=== PATIENT | female | born 1980 | race Caucasian/White ===

== ENCOUNTER 2017-09-18 14:04 | Emergency (ER) | payer OTHER ==
--- OUTSIDE RECORDS SUMMARY | 2017-09-18 14:14 | XMS REPORT ---
:1980 Author Organization [facility] Address Unavailable , Allergies, Adverse Reactions, Alerts Allergy Name Reaction Description Start Date Severity Status Provider Allergies Unknown Conditions or Problems Problem Name Problem Onset Status Entry Provider Comment Standard Annotate Code Date Date Description COUNSELING V65.45 Active Elieser Counseling on OTHER Gustavo other TRANSMITTED sexually DISEASES transmitted diseases Medication List Medication Instructions Start Stop Generic NDC Status Provider Patient Date Date Name Instruction Drug Treatment Unknown - unknown Diagnostic Results Date Name Value Unit Range Description Lab Report: RPR, Rfx Qn RPR/Confirm TP - Serology rapid plasma reagin antibody, serum Non Reactive Non Reactive Internal Other: Public Health: Community Testing - Chemistry HIV rapid test results negative Procedures Code Procedure Name Date Entry Date Standard Description [id number] Health Education/Supportive 11:43:35 CDT Counseling
[2017-09-18] MEDS ORDERED: ONDANSETRON 4 MG/2 ML VIAL ONE (14:39)
[2017-09-18] MEDS ORDERED: NA CHLORIDE 0.9% 1,000 ML ONE ×2 (14:39→15:43)
[2017-09-18 14:46] LABS: Absolute Lymphocytes (CBC) 0.6 K/uL (0.7-4.9); Absolute Monocytes 0.8 K/uL (0.1-1.3); Absolute Neutrophil 9.7 K/uL (1.8-8.0); Basophils % 0.3 % (0-1.3); Eosinophils % 0.4 % (0-4.4); Hematocrit 37.4 % (36.0-45.0); Lymphocytes % 5.4 % (15.3-44.8); MCH 31.3 pg (27.0-35.0); MCV 90.2 fL (80-100); MPV 9.3 fL (7.6-11.3); Monocytes % 7.5 % (3.3-12.3); RBC Red Blood Cell Count 4.14 M/uL (3.86-4.86)
[2017-09-18] MEDS ORDERED: KETOROLAC 30 MG/ML INJ ONE (14:56)
[2017-09-18 15:04] LABS: Albumin 3.6 g/dL (3.4-5.0); Bilirubin Total 0.5 mg/dL (0.2-1.0); Potassium 3.8 mmol/L (3.5-5.1); Protein, Total 6.6 g/dL (6.4-8.2)
--- NOTE | 2017-09-18 15:12 | ER ---
Nurse's Notes [facility] Name: Sophie Barahona Age: 36 yrs Sex: Female : 1980 Arrival Date: 09/18/2017 Time: 14:05 Bed 18 Private MD: Diagnosis: Cystitis;Type 1 diabetes mellitus;Acute tubulo-interstitial nephritis;Fever, unspecified;Bandemia Presentation: 09/18 14:05 Presenting complaint: Patient states: back pain, fever since 9-10am. I think I have ch pylo again. Transition of care: patient was not received from another setting of care. Onset of symptoms was September 18, 2017 at 09:00. Risk Assessment: Do you want to hurt yourself or someone else? Patient reports no desire to harm self or others. Initial Sepsis Screen: Does the patient meet any 2 criteria? Temp <36.0*C (96.8*F)) or > 38.3*C (100.4*F). HR > 90 bpm. Yes Does the patient have a suspected source of infection? Yes: Dysuria/Frequency/Urgency/UTI. Care prior to arrival: Medication(s) given: aleve. 14:05 Method Of Arrival: Ambulatory 14:05 Acuity: JULIAN 3 ch Triage Assessment: 14:08 General: Appears in no apparent distress. uncomfortable, Behavior is calm, cooperative, ch appropriate for age. Pain: Complains of pain in back. Historical: - Allergies: 14:08 No Known Allergies; ch - Home Meds: 14:08 humalog insulin pump, 0.8 units/ hour during day and 0.5 units/hour during night time ch [Active]; losartan 10 mg Oral 1 tab once daily [Active]; - PMHx: 14:08 Diabetes - IDDM; Hypertension; UTI; pylo; SVT; ch - PSHx: 14:08 ; Tonsillectomy; breast augmentation; ch - Immunization history:: Adult Immunizations up to date. - Social history:: Smoking status: Patient/guardian denies using tobacco. - Ebola Screening: : Patient negative for fever greater than or equal to 101.5 degrees Fahrenheit, and additional compatible Ebola Virus Disease symptoms Patient denies exposure to infectious person Patient denies travel to an Ebola-affected area in the 21 days before illness onset No symptoms or risks identified at this time. - Family history:: not pertinent. Screenin:09 Abuse screen: Denies threats or abuse. Denies injuries from another. Nutritional screening: No deficits noted. Tuberculosis screening: No symptoms or risk factors identified. Fall Risk None identified. Assessment: 14:09 General: Appears in no apparent distress. uncomfortable. 14:54 Reassessment: Patient appears in no apparent distress at this time. Patient and/or ch family updated on plan of care and expected duration. Pain level reassessed. Patient is alert, oriented x 3, equal unlabored respirations, skin warm/dry/pink. 15:47 Reassessment: awaiting second set of blood cultures prior to administration of antibiotics. awaiting antibiotics prior to discharge. 17:05 Reassessment: Patient appears in no apparent distress at this time. Patient and/or ch family updated on plan of care and expected duration. Pain level reassessed. Patient is alert, oriented x 3, equal unlabored respirations, skin warm/dry/pink. Patient states symptoms have improved. Vital Signs: 14:08 BP 157 / 78; Pulse 135; Resp 26; Pulse Ox 99% on R/A; ch 14:54 BP 130 / 79; Pulse 106; Resp 16; Temp 99.4(O); Pulse Ox 100% on R/A; Weight 78.93 kg; ch Height 5 ft. 8 in. (172.72 cm); Pain 5/10; 15:38 BP 121 / 71; Pulse 92; Resp 18; Pulse Ox 97% on R/A; mh5 17:05 BP 107 / 54; Pulse 94; Resp 15; Temp 98.6; Pulse Ox 99% on R/A; Pain 6/10; ch 14:54 Body Mass Index 26.46 (78.93 kg, 172.72 cm) ED Course: 14:05 Patient arrived in ED. 14:05 Stefani Rowley, RN is Primary Nurse. 14:06 Triage completed. 14:08 Arm band placed on left wrist. Patient placed in an exam room, on a stretcher, on pulse oximetry. 14:09 No apparent distress. Resting quietly. 14:09 Patient has correct armband on for positive identification. Placed in gown. Bed in low position. Call light in reach. Side rails up X 1. Pulse ox on. NIBP on. 14:18 Valente Tay MD is Attending Physician. aaliyah 14:45 Inserted saline lock: 20 gauge in right antecubital area, using aseptic technique. ch Blood collected. 14:45 No provider procedures requiring assistance completed. 14:50 Initial lab(s) drawn, by me, sent to lab. First set of blood cultures drawn Urine ch collected: clean catch specimen. 15:47 Warm blanket given. ch 17:05 IV discontinued, intact, bleeding controlled, No redness/swelling at site. Pressure ch dressing applied. Administered Medications: 14:40 Drug: NS 0.9% 1000 ml Route: IV; Rate: 1 bolus; Site: right antecubital; ch 16:15 Follow up: IV Status: Completed infusion; IV Intake: 1000ml 14:50 Drug: Zofran 4 mg Route: IVP; Site: right antecubital; ch 16:10 Follow up: Response: No adverse reaction ch 15:20 Drug: TORadol 30 mg Route: IVP; Site: left antecubital; ch 16:10 Follow up: Response: No adverse reaction; No change in condition 15:30 Drug: Insulin Regular Human 10 units {Co-Signature: mg2 (Kodak Casas RN).} Route: IVP; Site: right antecubital; 16:49 Follow up: Response: No adverse reaction; Blood sugar is lowered 15:50 Drug: Rocephin 2 grams Route: IV; Rate: calculated rate; Site: right antecubital; ch 16:14 Follow up: IV Status: Completed infusion ch 16:02 Drug: NS 0.9% 1000 ml Route: IV; Rate: 1 bolus; Site: right antecubital; ch 16:03 Drug: Cipro 400 mg Volume: 200 ml; Route: IVPB; Infused Over: 60 mins; Site: right ch antecubital; 16:08 Not Given (wrong order): Rocephin - (cefTRIAXone) 2 grams IVPB once over 30 mins; (mix ch in 100 mL NS) Point of Care Testing: Blood Glucose: 16:21 Blood Glucose: 183 mg/dL; mh5 Ranges: Intake: 16:15 IV: 1000ml; Total: 1000ml. ch Outcome: 15:11 Discharge ordered by . aaliyah 17:05 Discharged to home ambulatory, with family. ch 17:05 Condition: improved 17:05 Discharge instructions given to patient, family, Instructed on discharge instructions, follow up and referral plans. medication usage, Demonstrated understanding of instructions, follow-up care, medications, Prescriptions given X 4, scripts called into the [facility] in [place] by myself 17:07 Patient left the ED. Addendum: 09/21/2017 09:39 Addendum: Culture Results: Positive urine culture. No further action required. Bacteria i w sensitive to prescribed antibiotic. Signatures: Stefani Rowley, RN RN Valente Hernandez MD MD cha Williams, Irene, RN RN Sebas Hadley RN RN Yarely Mercedes [facility] Kodak Casas RN mg2
--- NOTE | 2017-09-18 15:12 | EDPHYS ---
Physician Documentation [facility] Name: Sophie Barahona Age: 36 yrs Sex: Female : 1980 Arrival Date: 09/18/2017 Time: 14:05 Bed 18 Private MD: ED Physician Vaelnte Tay HPI: 09/18 15:05 This 36 yrs old Female presents to ER via Ambulatory with complaints of Fever.aaliyah 15:05 The patient reports fever, that was measured at 102 degrees Fahrenheit. Onset: The aaliyah symptoms/episode began/occurred 2 day(s) ago. Modifying factors: there are no obvious modifying factors. Associated signs and symptoms: Pertinent positives: abdominal pain. Severity of symptoms: At their worst the symptoms were moderate in the emergency department the symptoms are unchanged. The patient has not experienced similar symptoms in the past. Historical: - Allergies: 14:08 No Known Allergies; ch - Home Meds: 14:08 humalog insulin pump, 0.8 units/ hour during day and 0.5 units/hour during night time ch [Active]; losartan 10 mg Oral 1 tab once daily [Active]; - PMHx: 14:08 Diabetes - IDDM; Hypertension; UTI; pylo; SVT; ch - PSHx: 14:08 ; Tonsillectomy; breast augmentation; ch - Immunization history:: Adult Immunizations up to date. - Social history:: Smoking status: Patient/guardian denies using tobacco. - Ebola Screening: : Patient negative for fever greater than or equal to 101.5 degrees Fahrenheit, and additional compatible Ebola Virus Disease symptoms Patient denies exposure to infectious person Patient denies travel to an Ebola-affected area in the 21 days before illness onset No symptoms or risks identified at this time. - Family history:: not pertinent. ROS: 15:05 Constitutional: Negative for fever, chills, and weight loss, Eyes: Negative for injury, aaliyah pain, redness, and discharge, ENT: Negative for injury, pain, and discharge, Neck: Negative for injury, pain, and swelling, Cardiovascular: Negative for chest pain, palpitations, and edema, Respiratory: Negative for shortness of breath, cough, wheezing, and pleuritic chest pain, : Negative for injury, bleeding, discharge, and swelling, MS/Extremity: Negative for injury and deformity, Skin: Negative for injury, rash, and discoloration, Neuro: Negative for headache, weakness, numbness, tingling, and seizure, Psych: Negative for depression, anxiety, suicide ideation, homicidal ideation, and hallucinations, Allergy/Immunology: Negative for hives, rash, and allergies, Endocrine: Negative for neck swelling, polydipsia, polyuria, polyphagia, and marked weight changes, Hematologic/Lymphatic: Negative for swollen nodes, abnormal bleeding, and unusual bruising. 15:05 Constitutional: Positive for body aches, chills, fever. 15:05 Back: Positive for decreased range of motion, pain at rest, flank pain, on the right. Exam: 15:05 Constitutional: This is a well developed, well nourished patient who is awake, alert, aaliyah and in no acute distress. Head/Face: Normocephalic, atraumatic. Eyes: Pupils equal round and reactive to light, extra-ocular motions intact. Lids and lashes normal. Conjunctiva and sclera are non-icteric and not injected. Cornea within normal limits. Periorbital areas with no swelling, redness, or edema. ENT: Nares patent. No nasal discharge, no septal abnormalities noted. Tympanic membranes are normal and external auditory canals are clear. Oropharynx with no redness, swelling, or masses, exudates, or evidence of obstruction, uvula midline. Mucous membranes moist. Neck: Trachea midline, no thyromegaly or masses palpated, and no cervical lymphadenopathy. Supple, full range of motion without nuchal rigidity, or vertebral point tenderness. No Meningismus. Chest/axilla: Normal chest wall appearance and motion. Nontender with no deformity. No lesions are appreciated. Cardiovascular: Regular rate and rhythm with a normal S1 and S2. No gallops, murmurs, or rubs. Normal PMI, no JVD. No pulse deficits. Respiratory: Lungs have equal breath sounds bilaterally, clear to auscultation and percussion. No rales, rhonchi or wheezes noted. No increased work of breathing, no retractions or nasal flaring. Abdomen/GI: Soft, non-tender, with normal bowel sounds. No distension or tympany. No guarding or rebound. No evidence of tenderness throughout. Skin: Warm, dry with normal turgor. Normal color with no rashes, no lesions, and no evidence of cellulitis. MS/ Extremity: Pulses equal, no cyanosis. Neurovascular intact. Full, normal range of motion. Neuro: Awake and alert, GCS 15, oriented to person, place, time, and situation. Cranial nerves II-XII grossly intact. Motor strength 5/5 in all extremities. Sensory grossly intact. Cerebellar exam normal. Normal gait. Psych: Awake, alert, with orientation to person, place and time. Behavior, mood, and affect are within normal limits. 15:05 Back: pain, that is mild, that is moderate, of the right mid back and right low back, ROM is painless, normal spinal alignment noted, CVA tenderness, that is mild, that is moderate, is noted on the right, muscle spasm, is not present. Vital Signs: 14:08 BP 157 / 78; Pulse 135; Resp 26; Pulse Ox 99% on R/A; ch 14:54 BP 130 / 79; Pulse 106; Resp 16; Temp 99.4(O); Pulse Ox 100% on R/A; Weight 78.93 kg; ch Height 5 ft. 8 in. (172.72 cm); Pain 5/10; 15:38 BP 121 / 71; Pulse 92; Resp 18; Pulse Ox 97% on R/A; mh5 17:05 BP 107 / 54; Pulse 94; Resp 15; Temp 98.6; Pulse Ox 99% on R/A; Pain 6/10; ch 14:54 Body Mass Index 26.46 (78.93 kg, 172.72 cm) MDM: 14:18 Patient medically screened. [facility] 15:09 Data reviewed: vital signs, nurses notes, lab test result(s). [facility] 09/18 14:20 Order name: CBC with Diff; Complete Time: 16:03 [facility] 09/18 14:20 Order name: Comprehensive Metabolic Panel; Complete Time: 15:04 [facility] 09/18 14:20 Order name: Urine Culture; Complete Time: 17:16 [facility] 09/18 14:20 Order name: Blood Culture Adult (2) [facility] 09/18 14:20 Order name: Procalcitonin; Complete Time: 16:03 [facility] 09/18 15:29 Order name: Urine Dipstick--Ancillary (enter results) 09/18 15:29 Order name: Urine --Ancillary (enter results) 09/18 15:30 Order name: Urine Dipstick-Ancillary; Complete Time: 16:03 [facility] 09/18 15:30 Order name: Urine --Ancillary; Complete Time: 16:03 [facility] 09/18 15:49 Order name: Manual Differential; Complete Time: 16:03 [facility] 09/18 14:20 Order name: Urine Dipstick-Ancillary (obtain specimen); Complete Time: 16:49 [facility] 09/18 14:20 Order name: Urine Test (obtain specimen); Complete Time: 16:49 [facility] Administered Medications: 14:40 Drug: NS 0.9% 1000 ml Route: IV; Rate: 1 bolus; Site: right antecubital; ch 16:15 Follow up: IV Status: Completed infusion; IV Intake: 1000ml 14:50 Drug: Zofran 4 mg Route: IVP; Site: right antecubital; ch 16:10 Follow up: Response: No adverse reaction ch 15:20 Drug: TORadol 30 mg Route: IVP; Site: left antecubital; ch 16:10 Follow up: Response: No adverse reaction; No change in condition 15:30 Drug: Insulin Regular Human 10 units {Co-Signature: mg2 (Kodak Casas RN).} Route: ch IVP; Site: right antecubital; 16:49 Follow up: Response: No adverse reaction; Blood sugar is lowered ch 15:50 Drug: Rocephin 2 grams Route: IV; Rate: calculated rate; Site: right antecubital; ch 16:14 Follow up: IV Status: Completed infusion 16:02 Drug: NS 0.9% 1000 ml Route: IV; Rate: 1 bolus; Site: right antecubital; 16:03 Drug: Cipro 400 mg Volume: 200 ml; Route: IVPB; Infused Over: 60 mins; Site: right ch antecubital; 16:08 Not Given (wrong order): Rocephin - (cefTRIAXone) 2 grams IVPB once over 30 mins; (mix ch in 100 mL NS) Point of Care Testing: Blood Glucose: 16:21 Blood Glucose: 183 mg/dL; mh5 Ranges: Critical Glucose Levels:Adult <50 mg/dl or >400 mg/dl <40 mg/dl or >180 mg/dl Disposition: 09/18/17 15:11 Discharged to Home. Impression: Cystitis, Type 1 diabetes mellitus, Acute tubulo-interstitial nephritis, Fever, unspecified, Bandemia. - Condition is Stable. - Discharge Instructions: Type 1 Diabetes Mellitus, Adult, Dysuria, Pyelonephritis, Adult, Pyelonephritis, Adult, [id number]. - Prescriptions for Tylenol- Codeine #3 300-30 mg Oral Tablet - take 2 tablets by ORAL route every 6 hours As needed; 26 tablet. Cipro 500 mg Oral Tablet - take 1 tablet by ORAL route every 12 hours for 7 days; 14 tablet. Bactrim DS 800- 160 mg Oral Tablet - take 1 tablet by ORAL route every 12 hours for 5 days; 10 tablet. Zofran 4 mg Oral Tablet - take 1 tablet by ORAL route every 12 hours As needed; 14 tablet. - Medication Reconciliation Form, Thank You Letter, Antibiotic Education, Prescription Opioid Use form. - Follow up: Private Physician; When: 2 - 3 days; Reason: Recheck today's complaints, Continuance of care, Re-evaluation by your physician. - Problem is new. - Symptoms have improved. Signatures: Dispatcher [employer] Stefani Malone, Valente Walden RN, ch, MD MD cha Therrien, Shelly, RN ALLERGY-C RN ALLERGY-Csnw Kodak Casas RN mg2 Corrections: (The following items were deleted from the chart) 16:05 15:11 09/18/2017 15:11 Discharged to Home. Impression: Cystitis; Type 1 diabetes aaliyah mellitus; Acute tubulo-interstitial nephritis. Condition is Stable. Forms are Medication Reconciliation Form, Thank You Letter, Antibiotic Education, Prescription Opioid Use. Follow up: Private Physician; When: 2 - 3 days; Reason: Recheck today's complaints, Continuance of care, Re-evaluation by your physician. Problem is new. Symptoms have improved. [facility] 17:07 16:05 09/18/2017 15:11 Discharged to Home. Impression: Cystitis; Type 1 diabetes ch mellitus; Acute tubulo-interstitial nephritis; Fever, unspecified; Bandemia. Condition is Stable. Discharge Instructions: Dysuria, Pyelonephritis, Adult, Pyelonephritis, Adult, [id number], Type 1 Diabetes Mellitus, Adult. Prescriptions for Tylenol-Codeine #3 300-30 mg Oral Tablet - take 2 tablets by ORAL route every 6 hours As needed; 26 tablet, Cipro 500 mg Oral Tablet - take 1 tablet by ORAL route every 12 hours for 7 days; 14 tablet, Bactrim DS 800-160 mg Oral Tablet - take 1 tablet by ORAL route every 12 hours for 5 days; 10 tablet, Zofran 4 mg Oral Tablet - take 1 tablet by ORAL route every 12 hours As needed; 14 tablet. and Forms are Medication Reconciliation Form, Thank You Letter, Antibiotic Education, Prescription Opioid Use. Follow up: Private Physician; When: 2 - 3 days; Reason: Recheck today's complaints, Continuance of care, Re-evaluation by your physician. Problem is new. Symptoms have improved. aaliyah
[2017-09-18] MEDS ORDERED: CEFTRIAXONE/SWI 1gm 2 GM/20 ML SYR ONE (15:18)
[2017-09-18] MEDS ORDERED: INSULIN -REGULAR HUMAN 50 UNIT/0.5 ML ML ONE (15:18)
[2017-09-18] MEDS ORDERED: CIPROFLOXACIN 400mg IV 400 MG/200 ML BAG IV ONE (15:19)
[2017-09-18 15:50] LABS: Blood Morphology Comment NOT SEEN (NOT SEEN); Platelet Estimate ADEQ
[2017-09-18 15:53] LABS: Urine Blood NEGATIVE (NEG); Urine Glucose 2+ (NEG); Urine Protein NEGATIVE (NEG); Urine Specific Gravity 1.015 (1.005-1.030); Urine pH 6.5 (5.0-7.0)
== END 2017-09-18 17:07 | disposition home or self-care (01) ==
LOC: ER 14:04
DX: N30.90 Cystitis, unspecified without hematuria (principal); E10.8 Type 1 diabetes mellitus with unspecified complications; N10 Acute pyelonephritis; I10 Essential (primary) hypertension; Z79.4 Long term (current) use of insulin
CPT/HCPCS: 36415; 80053; 81003; 81025; 82962; 84145; 85025; 87040; 87077; 87086; 87088; 87186; 99284; J0696; J0744; J2405; J7030

== ENCOUNTER 2018-02-15 10:10 | Day surgery (SDC) | payer OTHER ==
--- NOTE | 2018-02-14 16:35 | RAD REPORT ---
EXAM DESCRIPTION: RAD - Chest Pa And Lat (2 Views) - 02/14/2018 4:02 pm CLINICAL HISTORY: Preop, pending rotator tear repair COMPARISON: November 2016 TECHNIQUE: PA and lateral views of the chest were obtained. FINDINGS: The lungs are clear. Heart size is normal and central vasculature is within normal limit s. No pleural effusion or pneumothorax seen. No acute bony finding noted. No aortic abnormality. No significant interval change. IMPRESSION: No acute cardiopulmonary process.
[2018-02-14 16:46] LABS: Urine Appearance CLEAR; Urine Bilirubin NEGATIVE (NEG); Urine Blood NEGATIVE (NEG); Urine Color YELLOW; Urine Glucose TRACE (NEG); Urine Protein NEGATIVE (NEG); Urine Specific Gravity 1.015 (1.005-1.030); Urine Urobilinogen 0.2 mg/dL (0.2-1.0)
[2018-02-14 16:47] LABS: Absolute Lymphocytes (CBC) 3.2 K/uL (0.7-4.9); Absolute Monocytes 0.6 K/uL (0.1-1.3); Absolute Neutrophil 6.1 K/uL (1.8-8.0); Basophils % 1.1 % (0-1.3); Eosinophils % 1.7 % (0-4.4); Hematocrit 38.3 % (36.0-45.0); Lymphocytes % 31.6 % (15.3-44.8); MCH 32.6 pg (27.0-35.0); MCV 91.1 fL (80-100); MPV 9.2 fL (7.6-11.3); Monocytes % 6.2 % (3.3-12.3)
[2018-02-14 16:48] LABS: Specific Gravity 1.015 (1.005-1.030)
[2018-02-14 16:49] LABS: Urine Microscopic Reflex NO UMIC
[2018-02-14 16:56] LABS: Protime INR 1.01
[2018-02-14 17:09] LABS: Potassium 3.6 mmol/L (3.5-5.1)
--- NOTE | 2018-02-15 07:19 | EKG ---
Test Date: 2018-02-14 Test Time: 15:54:28 Claims Analyst: NADIA MEASUREMENT RESULTS: Intervals: Rate: 83 IA: 146 QRSD: 78 QT: 370 QTc: 434 [place]: P: 41 IA: 146 QRS: -2 T: 32 INTERPRETIVE STATEMENTS: Normal sinus rhythm Low voltage QRS Borderline ECG No previous ECG available for comparison Electronically Signed On 02-15-18 07:19:[address] by Kelvin Davenport
--- OUTSIDE RECORDS SUMMARY | 2018-02-15 10:13 | XMS REPORT ---
:1980 Author Organization [facility] Address Unavailable , Allergies, Adverse Reactions, Alerts [...]
[2018-02-15] MEDS ORDERED: NA CHLORIDE 0.9% 1,000 ML ONE ×2 (10:29→13:34)
[2018-02-15] MEDS ORDERED: CEFAZOLIN 1GM (PREMIX IV) 1 GM/50 ML BAG ONE (10:29)
[2018-02-15] MEDS ORDERED: MIDAZOLAM HCL 2 MG/2 ML INJ ONE ×2 (11:23→12:21)
[2018-02-15] MEDS ORDERED: ROPLVACAINE HCL 20 ML ONE (11:30)
[2018-02-15] MEDS ORDERED: DEXAMETHASONE 4 MG/ML VIAL ONE (11:30)
[2018-02-15] MEDS ORDERED: LIDOCAINE 2% MPF 5 ML VIAL ONE (12:20)
[2018-02-15] MEDS ORDERED: PROPOFOL 200 MG/20 ML VIAL IV ONE (12:20)
[2018-02-15] MEDS ORDERED: FENTANYL CITR 100 MCG/2 ML ONE ×2 (12:20→13:15)
[2018-02-15] MEDS ORDERED: ROCURONIUM 50 MG/5 ML VIAL IV ONE (12:22)
[2018-02-15] MEDS ORDERED: GLYCOPYRROLATE 0.2 MG/ML SYR ONE (12:23)
[2018-02-15] MEDS ORDERED: NEOSTIGMINE 1 MG/ML -5 ML SYRINGE ONE (12:25)
[2018-02-15] MEDS ORDERED: BUPIVACA 0.5%/EPI 0.0005%/PF 30 ML VIAL ONE (12:32)
[2018-02-15] MEDS ORDERED: Phenylephrine HCl 10 MG/ML 1 ML VIAL ONE (13:19)
[2018-02-15] MEDS ORDERED: Mastisol Adhesive Liq ONE (13:56)
[2018-02-15] MEDS ORDERED: CODEINE 30MG/APAP 300MG TAB ONE (15:39)
--- NOTE | 2018-02-16 01:35 | OP ---
Surgeon: Chaim Kam MD Preoperative Diagnosis: Left rotator cuff tear. Postoperative Diagnosis: Left rotator cuff tear. Procedure Performed: 1.Arthroscopic debridement, intra-articular shoulder . 2.Mini arthrotomy subacromial decompression with advancement and repair of rotator cuff tear. Commercial Marketing Specialist: ALAYNA Joyner. Complications: None. Disposition: Recovery room, stable. Procedure In Detail: The patient was taken to the operative suite, placed in supine position, induce d anesthesia. The shoulder was prepped and draped in usual sterile fashion. The shoulder was access ed through a posterior lateral arthroscopic portal. Found to have a labral tear and an bicipital anc hor tear that was described on the MRI scan through an anterior portal, this was debrided with the fi rm bicipital anchor achieved to the completion of the procedure. The patient tolerated the procedure well through up to this point. The rotator cuff tear was identified. A focal area has similar liudmila on described by the MRI scan in anterior and lateral approach to the shoulder. A mini arthrotomy sub acromial decompression was performed. Minimal deltoid detachment of the rotator cuff tear was identi fied and advanced easily to its anatomic attachment where . A suture anchor was utilized t o tie it down to its anatomic attachment. Drill holes were placed in the acromion and the patient russo d of the deltoid through drill holes subcuticular stitch was placed, followed by Steri-Strips, followed by a sterile dressing. The patient is being reversed from anesthesia and should be in the recovery room shortly. CHRIS/ROBB Voice ID: [id number] Report ID: [id number]
== END 2018-02-15 16:03 | disposition home or self-care (01) ==
LOC: OR 10:10
PROVIDERS: ATTEND Orthopaedic Surgery
PROC: 0RNK0ZZ Release Left Shoulder Joint, Open Approach (ICD-10-PCS; 2018-02-15)
PROC: 0RBK4ZZ Excision of Left Shoulder Joint, Percutaneous Endoscopic Approach (ICD-10-PCS; 2018-02-15)
PROC: 0LM20ZZ Reattachment of Left Shoulder Tendon, Open Approach (ICD-10-PCS; principal; 2018-02-15 12:00)
DX: M75.122 Complete rotator cuff tear or rupture of left shoulder, not specified as traumatic (principal); E11.9 Type 2 diabetes mellitus without complications; I10 Essential (primary) hypertension; Z79.4 Long term (current) use of insulin; Z82.49 Family history of ischemic heart disease and other diseases of the circulatory system; Z80.3 Family history of malignant neoplasm of breast
CPT/HCPCS: 36415; 71046; 80048; 81003; 81025; 82962; 85025; 85610; 85730; 86850; 86900; 86901; 93005; J0690; J2250; J2370; J2704; J2710; J2795; J3010; J7030

== ENCOUNTER 2018-03-04 11:59 | Emergency (ER) | payer OTHER ==
--- OUTSIDE RECORDS SUMMARY | 2018-03-04 12:01 | XMS REPORT ---
:1980 Author Organization [facility] Address Unavailable , Allergies, Adverse Reactions, [...]
--- OUTSIDE RECORDS SUMMARY | 2018-03-04 12:01 | XMS REPORT ---
:1980 Author Organization [facility] Address [address] [place] [address] Dr. Nael [address] [place] [id number] Care Team Providers Name Role Phone Unavailable Unavailable Unavailable Problems This patient has no known problems. Allergies, Adverse Reactions, Alerts This patient has no known allergies or adverse reactions. Medications This patient has no known medications.
[2018-03-04] MEDS ORDERED: NA CHLORIDE 0.9% 1,000 ML ONE (12:50)
--- NOTE | 2018-03-04 13:03 | RAD REPORT ---
EXAM DESCRIPTION: [place] Single View03/04/2018 12:56 pm CLINICAL HISTORY: Chest pain COMPARISON: January 2018 FINDINGS: The lungs appear clear of acute infiltrate. The heart is normal size IMPRESSION: No acute abnormalities displayed
[2018-03-04 13:18] LABS: Absolute Monocytes 0.6 K/uL (0.1-1.3); Hematocrit 38.2 % (36.0-45.0); Lymphocytes % 20.5 % (15.3-44.8); MCV 90.9 fL (80-100); MPV 8.7 fL (7.6-11.3); Monocytes % 6.1 % (3.3-12.3); RBC Red Blood Cell Count 4.21 M/uL (3.86-4.86)
[2018-03-04 13:34] LABS: ALT/SGPT 27 U/L (12-78); AST/SGOT 8 U/L (15-37); Albumin 3.8 g/dL (3.4-5.0); Alkaline Phosphatase 78 U/L (45-117); BUN Blood Urea Nitrogen 16 mg/dL (7-18); Bicarbonate 25 mmol/L (21-32); Bilirubin Direct 0.1 mg/dL (0-0.2); Bilirubin Total 0.5 mg/dL (0.2-1.0); Glucose Level 262 mg/dL (74-106); Magnesium 1.7 mg/dL (1.8-2.4); NT PRO-BNP 17 pg/mL (<125); Potassium 4.4 mmol/L (3.5-5.1); Protein, Total 7.6 g/dL (6.4-8.2); Sodium Level 133 mmol/L (136-145); Troponin (Emerg Dept Use Only) < 0.02 ng/mL (0.0-0.045)
[2018-03-04 15:08] LABS: T4,Total 7.6 ug/dL (4.8-13.9); Thyroid Stimulating Hormone 1.24 uIU/mL (0.360-3.740)
--- NOTE | 2018-03-04 15:26 | RAD REPORT ---
EXAM DESCRIPTION: CT - Chest For Pe Angio - 03/04/2018 3:08 pm CLINICAL HISTORY: Chest pain, shortness of breath, history of recent left rotator cuff repair surgery COMPARISON: Chest films same date TECHNIQUE: Dynamically enhanced 3 mm thick images of the chest were obtained during administration o f approximately 150mL Isovue 370 IV contrast. Coronal and oblique MIP reconstruction images were gene rated and reviewed. Exam utilizes a protocol to evaluate the pulmonary arterial tree. All CT scans are performed using dose optimization technique as appropriate and may include automated exposure control or mA/KV adjustment according to patient size. FINDINGS: No pulmonary emboli are identified. The aorta as imaged shows no acute or suspicious finding. No pericardial thickening or effusion. No infiltrate or mass in the lung parenchyma. No pleural effusion or pleural thickening. No mediastinal or hilar suspicious masses. No chest wall masses or abnormal axillary lymphadenopathy. Bilateral breast implants in place. No abnormal soft tissue finding. Shoulder joint assessment is li mited. IMPRESSION: No pulmonary emboli identified. No other significant or suspicious findings.
--- NOTE | 2018-03-04 15:31 | EKG ---
Test Date: 2018-03-04 Test Time: 12:02:50 Dietetic Aide: RIDGE MEASUREMENT RESULTS: Intervals: Rate: 104 WV: 132 QRSD: 68 QT: 320 QTc: 420 [place]: P: 57 WV: 132 QRS: -3 T: 56 INTERPRETIVE STATEMENTS: Sinus tachycardia Abnormal ECG Compared to ECG 02/14/2018 15:54:28 Sinus rhythm no longer present Electronically Signed On 03-04-18 15:30:53 BLUE LEATHER SORTER by Kelvin Davenport
--- NOTE | 2018-03-04 15:36 | ER ---
Nurse's Notes [facility] Name: Sophie Barahona Age: 37 yrs Sex: Female : 1980 Arrival Date: 03/04/2018 Time: 12:01 Bed 26 Private MD: Diagnosis: Chest pain, unspecified;Shortness of breath Presentation: 03/04 12:10 Presenting complaint: Patient states: left rotator cuff surgery X 2 weeks , has been iw felling slightly winded and feeling some discomfort in her chest, was worse this morning at 0600, home pulse ox was reading 88%, pt states she used her Incentive Spirometer and was up to 97%, also has been running low grade temp. 12:22 Transition of care: patient was not received from another setting of care. Onset of iw symptoms was March 04, 2018. Risk Assessment: Do you want to hurt yourself or someone else? Patient reports no desire to harm self or others. Initial Sepsis Screen: Does the patient meet any 2 criteria? No. Patient's initial sepsis screen is negative. Does the patient have a suspected source of infection? No. Patient's initial sepsis screen is negative. Care prior to arrival: None. 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 - Ebola Screening: : Patient negative for fever greater than or equal to 101.5 degrees Fahrenheit, and additional compatible Ebola Virus Disease symptoms Patient denies exposure to infectious person Patient denies travel to an Ebola-affected area in the 21 days before illness onset No symptoms or risks identified at this time. - Social history:: Smoking status: Patient/guardian denies using tobacco. Screenin:23 Abuse screen: Denies threats or abuse. Denies injuries from another. Nutritional iw screening: No deficits noted. Tuberculosis screening: No symptoms or risk factors identified. Fall Risk IV access (20 points). Assessment: 12:30 General: Appears in no apparent distress. uncomfortable, Behavior is calm, cooperative. iw Pain: Complains of pain in mid-sternal area. Neuro: Level of Consciousness is awake, alert, obeys commands, Oriented to person, place, time, situation, Appropriate for age Moves all extremities. Full function. Cardiovascular: Reports chest pain, shortness of breath, Capillary refill < 3 seconds in bilateral fingers Patient's skin is warm and dry. Rhythm is sinus tachycardia. Respiratory: Reports shortness of breath cough that is Respiratory effort is even, unlabored, Respiratory pattern is regular, symmetrical. GI: No signs and/or symptoms were reported involving the gastrointestinal system. Derm: Skin is intact, is healthy with good turgor. Musculoskeletal: Range of motion: intact in all extremities. 13:09 Reassessment: Patient appears in no apparent distress at this time. Patient and/or iw family updated on plan of care and expected duration. Pain level reassessed. Patient is alert, oriented x 3, equal unlabored respirations, skin warm/dry/pink. 15:02 Reassessment: Patient appears in no apparent distress at this time. Patient and/or ls4 family updated on plan of care and expected duration. Pain level reassessed. Patient is alert, oriented x 3, equal unlabored respirations, skin warm/dry/pink. 15:57 Reassessment: Patient appears in no apparent distress at this time. Patient and/or ls4 family updated on plan of care and expected duration. Pain level reassessed. Patient is alert, oriented x 3, equal unlabored respirations, skin warm/dry/pink. Vital Signs: 12:14 BP 120 / 76; Pulse 104; Resp 18 S; Temp 98.2(O); Pulse Ox 100% on R/A; Weight 68.04 kg; iw Height 5 ft. 5 in. (165.10 cm); Pain 2/10; 13:09 BP 106 / 80; Pulse 100; Resp 16 S; Pulse Ox 100% ; iw 12:14 Body Mass Index 24.96 (68.04 kg, 165.10 cm) iw ED Course: 12:01 Patient arrived in ED. ss 12:03 Neeraj Remy NP is PHCP. pm1 12:03 Warm blanket given. ekg monitor on. Pulse ox on. NIBP on. mh5 12:04 Bashir Pastrana MD is Attending Physician. pm1 12:09 EKG done, by orthodontic laboratory technician. reviewed by Valente Tay MD. at1 12:10 Donna Harris, RN is Primary Nurse. iw 12:15 Arm band placed on. iw 12:15 Initial lab(s) drawn, by me, sent to lab. Inserted saline lock: 20 gauge in right iw antecubital area, using aseptic technique. 12:23 Triage completed. iw 12:30 Patient has correct armband on for positive identification. Placed in gown. Bed in low iw position. Call light in reach. Side rails up X2. Adult w/ patient. 12:55 X-ray completed. Portable x-ray completed in exam room. Patient tolerated procedure jb2 well. 12:57 XRAY Chest (1 view) In Process Unspecified. EDMS 13:10 Lab(s) recollected, by me, sent to lab. iw 14:[address] vm2 15:09 CT Chest For PE Angio In Process Unspecified. EDMS 15:59 No provider procedures requiring assistance completed. IV discontinued, intact, ls4 bleeding controlled, No redness/swelling at site. Pressure dressing applied. Administered Medications: 12:50 Drug: NS 0.9% 1000 ml Route: IV; Rate: 1000 ml; Site: right antecubital; iw 15:20 Follow up: IV Status: Completed infusion; IV Intake: 1000ml ls4 Intake: 15:20 IV: 1000ml; Total: 1000ml. ls4 Outcome: 15:36 Discharge ordered by . pm1 16:00 Condition: stable ls4 16:01 Discharged to home ambulatory, with family. ls4 16:01 Discharge instructions given to patient, family, Instructed on discharge instructions, follow up and referral plans. medication usage, safety practices, Demonstrated understanding of instructions, follow-up care, medications. 16:01 Patient left the ED. ls4 Signatures: Dispatcher [employer] EDMS David Caballero jb2 Donna Harris RN RN Elzbieta Ponce RN RN ss Mary Grewal, cytogenetics laboratory manager EKG Tat1 Neeraj Remy NP ROTARY PLANER SET UP OPERATOR pm1 Yarely Mercedes mh5 Annalisa, Kianna vm2 Chantell Larry, RN RN ls4
--- NOTE | 2018-03-04 15:36 | EDPHYS ---
Physician Documentation [facility] Name: Sophie Barahona Age: 37 yrs Sex: Female : 1980 Arrival Date: 03/04/2018 Time: 12:01 Bed 26 Private MD: ED Physician Bashir Pastrana HPI: 03/04 14:00 This 37 yrs old Female presents to ER via Ambulatory with complaints of pm1 Shortness Of Breath, Chest Pain. 14:00 The patient has shortness of breath at rest. Onset: The symptoms/episode began/occurred pm1 today. The patient's shortness of breath is alleviated by Shortness of breath improved with deep breathing. Associated signs and symptoms: Pertinent negatives: non-productive cough, productive cough, dizziness, fever, nausea, vomiting. Patient woke up today with a low O2 saturation that improved with deep breathing. She is also complaining of shortness of breath and chest pain located below her breasts. Patient with recent rotator cuff repair to left shoulder. No fever or cough. 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 - Ebola Screening: : Patient negative for fever greater than or equal to 101.5 degrees Fahrenheit, and additional compatible Ebola Virus Disease symptoms Patient denies exposure to infectious person Patient denies travel to an Ebola-affected area in the 21 days before illness onset No symptoms or risks identified at this time. - Social history:: Smoking status: Patient/guardian denies using tobacco. ROS: 15:00 Constitutional: Negative for fever, chills, and weight loss, Eyes: Negative for injury, pm1 pain, redness, and discharge, ENT: Negative for injury, pain, and discharge, Neck: Negative for injury, pain, and swelling. 15:00 Abdomen/GI: Negative for abdominal pain, nausea, vomiting, diarrhea, and constipation, Back: Negative for injury and pain, : Negative for injury, bleeding, discharge, and swelling, MS/Extremity: Negative for injury and deformity, Skin: Negative for injury, rash, and discoloration, Neuro: Negative for headache, weakness, numbness, tingling, and seizure. 15:00 Cardiovascular: Positive for chest pain, palpitations, Negative for edema, orthopnea. 15:00 Respiratory: Positive for shortness of breath, Negative for cough, sputum production, wheezing. Exam: 15:00 Constitutional: This is a well developed, well nourished patient who is awake, alert, pm1 and in no acute distress. Head/Face: Normocephalic, atraumatic. Eyes: Pupils equal round and reactive to light, extra-ocular motions intact. Lids and lashes normal. Conjunctiva and sclera are non-icteric and not injected. Cornea within normal limits. Periorbital areas with no swelling, redness, or edema. ENT: Nares patent. No nasal discharge, no septal abnormalities noted. Tympanic membranes are normal and external auditory canals are clear. Oropharynx with no redness, swelling, or masses, exudates, or evidence of obstruction, uvula midline. Mucous membranes moist. Neck: Trachea midline, no thyromegaly or masses palpated, and no cervical lymphadenopathy. Supple, full range of motion without nuchal rigidity, or vertebral point tenderness. No Meningismus. Chest/axilla: Normal chest wall appearance and motion. Nontender with no deformity. No lesions are appreciated. Cardiovascular: Regular rate and rhythm with a normal S1 and S2. No gallops, murmurs, or rubs. Normal PMI, no JVD. No pulse deficits. Respiratory: Lungs have equal breath sounds bilaterally, clear to auscultation and percussion. No rales, rhonchi or wheezes noted. No increased work of breathing, no retractions or nasal flaring. Abdomen/GI: Soft, non-tender, with normal bowel sounds. No distension or tympany. No guarding or rebound. No evidence of tenderness throughout. Back: No spinal tenderness. No costovertebral tenderness. Full range of motion. Skin: Warm, dry with normal turgor. Normal color with no rashes, no lesions, and no evidence of cellulitis. Left shoulder surgical scars without any signs of discharge, erythema, dihisence, or cellulitis MS/ Extremity: Pulses equal, no cyanosis. Neurovascular intact. Full, normal range of motion. 15:00 Neuro: Orientation: is normal, Motor: is normal. Vital Signs: 12:14 BP 120 / 76; Pulse 104; Resp 18 S; Temp 98.2(O); Pulse Ox 100% on R/A; Weight 68.04 kg; iw Height 5 ft. 5 in. (165.10 cm); Pain 2/10; 13:09 BP 106 / 80; Pulse 100; Resp 16 S; Pulse Ox 100% ; iw 12:14 Body Mass Index 24.96 (68.04 kg, 165.10 cm) iw MDM: 12:05 Patient medically screened. pm1 15:35 Data reviewed: vital signs. Data interpreted: Pulse oximetry: on room air is 100 %. pm1 Interpretation: normal. Counseling: I had a detailed discussion with the patient and/or guardian regarding: the historical points, exam findings, and any diagnostic results supporting the discharge/admit diagnosis, lab results, radiology results, the need for outpatient follow up, to return to the emergency department if symptoms worsen or persist or if there are any questions or concerns that arise at home. 03/04 12:24 Order name: Basic Metabolic Panel; Complete Time: 13:52 pm1 03/04 12:24 Order name: CBC with Diff; Complete Time: 13:27 pm1 03/04 12:24 Order name: LFT's; Complete Time: 13:52 pm1 03/04 12:24 Order name: Magnesium; Complete Time: 13:52 pm1 03/04 12:24 Order name: NT PRO-BNP; Complete Time: 13:52 pm1 03/04 12:24 Order name: Troponin (emerg Dept Use Only); Complete Time: 13:52 pm1 03/04 12:24 Order name: XRAY Chest (1 view); Complete Time: 13:07 pm1 03/04 12:25 Order name: Creatinine for Radiology; Complete Time: 13:52 pm1 03/04 14:26 Order name: TSH; Complete Time: 15:16 pm1 03/04 14:26 Order name: T4 Free; Complete Time: 15:16 pm1 03/04 14:26 Order name: T4,Total; Complete Time: 15:16 pm1 03/04 15:54 Order name: Urine Dipstick--Ancillary (enter results) 03/04 15:54 Order name: Urine --Ancillary (enter results) 03/04 12:24 Order name: EKG; Complete Time: 12:25 pm1 03/04 12:24 Order name: Cardiac monitoring; Complete Time: 12:25 pm1 03/04 12:24 Order name: EKG - Nurse/Tech; Complete Time: 12:25 pm1 03/04 12:24 Order name: IV Saline Lock; Complete Time: 12:41 pm1 03/04 12:24 Order name: Labs collected and sent; Complete Time: 12:41 pm1 03/04 12:24 Order name: O2 Per Protocol; Complete Time: 12:25 pm1 03/04 12:24 Order name: O2 Sat Monitoring; Complete Time: 12:25 pm1 03/04 12:54 Order name: Labs - recollect needed; Complete Time: 13:10 03/04 13:53 Order name: CT Chest For PE Angio; Complete Time: 15:29 pm1 Administered Medications: 12:50 Drug: NS 0.9% 1000 ml Route: IV; Rate: 1000 ml; Site: right antecubital; iw 15:20 Follow up: IV Status: Completed infusion; IV Intake: 1000ml ls4 Disposition: 16:29 Co-signature as Attending Physician, Bashir Pastrana MD. Disposition: 03/04/18 15:36 Discharged to Home. Impression: Chest pain, unspecified, Shortness of breath. - Condition is Stable. - Discharge Instructions: Nonspecific Chest Pain, Shortness of Breath. - Medication Reconciliation Form, Thank You Letter, Antibiotic Education, Prescription Opioid Use form. - Follow up: Emergency Department; When: As needed; Reason: Worsening of condition. Follow up: Private Physician; When: 2 - 3 days; Reason: Recheck today's complaints, Continuance of care, Re-evaluation by your physician. - Problem is new. - Symptoms have improved. Signatures: Dispatcher [employer] EDMS Leeanne Harvey Irene, RN RN Neeraj Remy, CONFIGURATION DEVELOPER CONFIGURATION DEVELOPER pm1 Bashir Pastrana MD MD Chantell Larry RN RN ls4 Corrections: (The following items were deleted from the chart) 16:01 15:36 03/04/2018 15:36 Discharged to Home. Impression: Chest pain, unspecified; ls4 Shortness of breath. Condition is Stable. Forms are Medication Reconciliation Form, Thank You Letter, Antibiotic Education, Prescription Opioid Use. Follow up: Emergency Department; When: As needed; Reason: Worsening of condition. Follow up: Private Physician; When: 2 - 3 days; Reason: Recheck today's complaints, Continuance of care, Re-evaluation by your physician. Problem is new. Symptoms have improved. pm1
[2018-03-04 16:16] LABS: Urine Blood NEGATIVE (NEG); Urine Glucose 1+ (NEG); Urine Protein 2+ (NEG); Urine pH 7.5 (5.0-7.0)
== END 2018-03-04 16:01 | disposition home or self-care (01) ==
LOC: ER 11:59
DX: R07.9 Chest pain, unspecified (principal); I10 Essential (primary) hypertension; E11.9 Type 2 diabetes mellitus without complications; Z79.4 Long term (current) use of insulin; Z96.41 Presence of insulin pump (external) (internal); Z98.82 Breast implant status
CPT/HCPCS: 36415; 71045; 71275; 80048; 80076; 81003; 81025; 83735; 83880; 84436; 84439; 84443; 84484; 85025; 93005; 96360; 96361; 99285; J7030; Q9967

== ENCOUNTER 2018-06-07 10:52 | Day surgery (SDC) | payer OTHER ==
[2018-06-05 17:23] LABS: Absolute Lymphocytes (CBC) 1.9 K/uL (0.7-4.9); Absolute Monocytes 0.7 K/uL (0.1-1.3); Absolute Neutrophil 8.1 K/uL (1.8-8.0); Eosinophils % 2.4 % (0-4.4); Hematocrit 40.2 % (36.0-45.0); Lymphocytes % 17.4 % (15.3-44.8); Monocytes % 6.2 % (3.3-12.3); RBC Red Blood Cell Count 4.37 M/uL (3.86-4.86)
[2018-06-05 17:32] LABS: Urine Appearance CLEAR; Urine Bilirubin NEGATIVE (NEG); Urine Blood NEGATIVE (NEG); Urine Color YELLOW; Urine Glucose 3+ (NEG); Urine Protein NEGATIVE (NEG); Urine Specific Gravity >=1.030 (1.005-1.030); Urine Urobilinogen 0.2 mg/dL (0.2-1.0)
[2018-06-05 17:33] LABS: Urine Microscopic Reflex NO UMIC
[2018-06-05 17:41] LABS: Potassium 4.5 mmol/L (3.5-5.1)
--- OUTSIDE RECORDS SUMMARY | 2018-06-07 10:54 | XMS REPORT ---
:1980 [facility] Address [address] [place] [address] Dr. Neal [address] [place] [id number] Care Team Providers Name Role Phone Unavailable Unavailable Unavailable Problems This patient has no known problems. Allergies, Adverse Reactions, Alerts This patient has no known allergies or adverse reactions. Medications This patient has no known medications.
--- OUTSIDE RECORDS SUMMARY | 2018-06-07 10:54 | XMS REPORT ---
:1980 Author Organization [facility] Address Unavailable , Allergies, Adverse Reactions, [...]
[2018-06-07] MEDS ORDERED: NA CHLORIDE 0.9% 1,000 ML ONE (11:09)
[2018-06-07] MEDS ORDERED: FENTANYL CITR 100 MCG/2 ML ONE ×2 (12:18→13:28)
[2018-06-07] MEDS ORDERED: LIDOCAINE 1% MPF 5 ML VIAL ONE (12:18)
[2018-06-07] MEDS ORDERED: PROPOFOL 200 MG/20 ML VIAL IV ONE (12:18)
[2018-06-07] MEDS ORDERED: MIDAZOLAM HCL 2 MG/2 ML INJ ONE (12:18)
[2018-06-07] MEDS ORDERED: TRIAMCINOLONE ACETON 40 MG/ML VIAL ONE (12:24)
[2018-06-07] MEDS ORDERED: LIDOCAINE 1% MPF 30 ML VIAL ONE (12:24)
[2018-06-07] MEDS ORDERED: KETOROLAC 30 MG/ML INJ ONE ×2 (12:40→13:27)
[2018-06-07] MEDS ORDERED: NS 0.9% VIAL 10 ML ONE (12:44)
[2018-06-07] MEDS ORDERED: ONDANSETRON 4 MG/2 ML VIAL ONE (12:44)
[2018-06-07] MEDS: HYDROMORPHONE HCL 2 MG/ML inj ONE ×4 (12:55→13:10)
[2018-06-07] MEDS: FENTANYL CITR 100 MCG/2 ML ONE ×2 (13:05→13:13)
[2018-06-07] MEDS ORDERED: PROMETHAZINE 25 MG/ML VIAL ONE (13:18)
[2018-06-07] MEDS ORDERED: DIPHENHYDRAMINE 50 MG/ML VIAL ONE (14:01)
--- NOTE | 2018-06-07 19:43 | OP ---
Surgeon: Chaim Kam MD Preoperative Diagnosis: Left shoulder ankylosis, status post left rotator cuff repair. Postoperative Diagnosis: Left shoulder ankylosis, status post left rotator cuff repair. Procedure Performed: 1.Manipulation of left shoulder under anesthesia. 2.Injection of left shoulder. Sound Truck Operator: None. Anesthesia: General. Procedure In Detail: The patient was taken to the operative suite, placed in supine position, induce d anesthesia. Left shoulder prepped and draped in usual sterile fashion. through the ran ge of motion with palpable lysis of adhesions and was injected with 1 cc Kenalog, 3 cc of lidocaine. The patient was reversed from anesthesia and should be in the recovery room shortly. PEREZ Voice ID: [id number] Report ID: [id number]
== END 2018-06-07 14:27 | disposition home or self-care (01) ==
LOC: OR 10:52
PROVIDERS: ATTEND Orthopaedic Surgery
PROC: 3E0U33Z Introduction of Anti-inflammatory into Joints, Percutaneous Approach (ICD-10-PCS; 2018-06-07)
PROC: 0RNKXZZ Release Left Shoulder Joint, External Approach (ICD-10-PCS; principal; 2018-06-07 12:00)
DX: M24.612 Ankylosis, left shoulder (principal); E10.9 Type 1 diabetes mellitus without complications; Z79.4 Long term (current) use of insulin
CPT/HCPCS: 36415; 80048; 81003; 81025; 82962; 85025; J1170; J2250; J2405; J2550; J2704; J3010; J3301; J7030

== ENCOUNTER 2019-04-21 14:21 | Inpatient (IN) | payer OTHER ==
--- OUTSIDE RECORDS SUMMARY | 2019-04-21 16:41 | XMS REPORT ---
:1980 [facility] Address [address] [place] [address] Dr. Neal [address] [place] [id number] Care Team Providers Name Role Phone Unavailable Unavailable Unavailable Problems This patient has no known problems. Allergies, Adverse Reactions, Alerts This patient has no known allergies or adverse reactions. Medications This patient has no known medications.
--- OUTSIDE RECORDS SUMMARY | 2019-04-21 16:41 | XMS REPORT ---
:1980 Author Organization [facility] Address Unavailable , Allergies, Adverse [...]
[2019-04-21] MEDS ORDERED: MORPHINE 2 MG/ML SYR IV PRN (17:05)
[2019-04-21] MEDS ORDERED: HYDROCODONE/APAP 5/325 MG TAB PO PRN (17:05)
[2019-04-21 17:38] LABS: Absolute Lymphocytes (CBC) 2.7 K/uL (0.7-4.9); Basophils % 0.9 % (0-1.3); Hematocrit 33.8 % (36.0-45.0); Lymphocytes % 21.4 % (15.3-44.8); MPV 9.3 fL (7.6-11.3); RBC Red Blood Cell Count 3.68 M/uL (3.86-4.86)
[2019-04-21] MEDS: Ringers Lactate 1,000 ML IV SCH (17:56)
[2019-04-21 17:57] LABS: Potassium 3.9 mmol/L (3.5-5.1)
[2019-04-21 18:22] VITALS: BMI 26.6
[2019-04-21] MEDS: PIPER/TAZO/NS 3.375gm 3.375 GM/100 ML BAG IVPB SCH (19:20)
[2019-04-21] MEDS ORDERED: PNEUMOCOCCAL VACCINE 0.5 ML IMVAC ONE (21:00)
[2019-04-22] MEDS: PIPER/TAZO/NS 3.375gm 3.375 GM/100 ML BAG IVPB SCH ×3 (00:40→16:45)
[2019-04-22] MEDS: Ringers Lactate 1,000 ML IV SCH ×5 (02:00→18:00)
[2019-04-22] MEDS ORDERED: NA CHLORIDE 0.9% 1,000 ML ONE ×2 (07:21→09:24)
[2019-04-22] MEDS: LIDOCAINE 1% W/EPI 1:100,000 MDV 20 ML VIAL ONE ×2 (07:36→08:40)
[2019-04-22] MEDS ORDERED: propofoL 200 MG/20 ML VIAL IV ONE (07:40)
[2019-04-22] MEDS ORDERED: FENTANYL CITR 100 MCG/2 ML ONE (07:41)
[2019-04-22] MEDS ORDERED: LIDOCAINE 2% MPF 5 ML VIAL ONE (07:41)
[2019-04-22] MEDS ORDERED: MIDAZOLAM HCL 2 MG/2 ML INJ ONE (07:41)
[2019-04-22] MEDS ORDERED: dexAMETHasone 10 MG/ML VIAL ONE (08:38)
[2019-04-22] MEDS ORDERED: ONDANSETRON 4 MG/2 ML VIAL ONE ×2 (08:38→09:09)
[2019-04-22] MEDS ORDERED: KETOROLAC 30 MG/ML INJ ONE (08:43)
[2019-04-22] MEDS ORDERED: INSULIN LISPRO SQ SCH (09:15)
[2019-04-22] MEDS: HYDROMORPHONE HCL 1 MG/ML INJ ONE ×2 (09:17→09:23)
[2019-04-22 10:13] LABS: Absolute Lymphocytes (CBC) 2.3 K/uL (0.7-4.9); Basophils % 0.8 % (0-1.3); Hematocrit 30.9 % (36.0-45.0); Lymphocytes % 23.6 % (15.3-44.8); MPV 9.3 fL (7.6-11.3); RBC Red Blood Cell Count 3.32 M/uL (3.86-4.86)
[2019-04-22] MEDS ORDERED: IBUPROFEN 600 MG TAB PO PRN (13:35)
[2019-04-22] MEDS: ONDANSETRON 4 MG/2 ML VIAL IV PRN (14:50)
[2019-04-22] MEDS ORDERED: IBUPROFEN 200 MG TAB PO PRN (14:56)
[2019-04-22] MEDS: IBUPROFEN 200 MG TAB PO PRN ×2 (15:55→21:35)
--- NOTE | 2019-04-22 19:34 | OP ---
Date of Procedure: 04/22/2019 Surgeon: Jody Woods MD Car Shifter: Wen Elizalde. Preoperative Diagnosis: Right mons and labial abscess. Postoperative Diagnosis: Right mons and labial abscess. Procedure Performed: Exam under anesthesia, incision and drainage, followed by debridement of the ab scess and infected tissue. Anesthesia: General with LMA. Specimens: Debrided tissue and aerobic and anaerobic cultures. Estimated Blood Loss: Minimal. Complications: No complications. Drains: Packing in the wound with 2 x 2 roll, wet-to-dry dressings done. Description Of Procedure: The patient is a 38-year-old type 1 diabetic, presented with tenderness an d increasing lump on the right mons last week, placed on Bactrim for possible cellulitis. There was nothing to drain at the time. No abscess noted. Back on Sunday, which was yesterday in the office w ith a larger mass very painful, on ambulation or doing anything even sitting down. On examination, i t was a clear abscess, but very deep-seated with a lot of cellulitis on the top extending and deviati ng the labia on the right over to the left shifting it due to the size of the mass and the inflammati on, so she was deemed appropriate to be admitted to the hospital for IV antibiotics and then drain it . Today, she was brought in for an incision, drainage, and debridement. After being consented, she was taken back to the OR. She had received Zosyn 2 doses already since admission and she was taken t o the OR, placed in supine fashion on the operating table. General anesthesia was given. She was pl aced in a dorsal lithotomy position and prep was done on the lower abdomen, vulva, vagina, and perine um. She was draped appropriately. SCDs were started. Time-out was done and an elliptical incision was made with a 15-blade after injecting with local, then went ahead and cultured as the pus started to come out. The abscess cavity was much more superior and lateral on the mons and so, the incision was extended laterally and superiorly. Then, there was tissue on the top that had to be debride d and once this was done, the abscess cavity was very well formed and was all removed excepting for t he superior most lateral aspect, which was difficult to hold and removed, but this was curetted with the help of the tissue curette. After all the tissues were properly curetted, there was good bleedin g tissue underlying. Then, irrigation was done to clean out the tissue. No other extension of the c avity was noted. Probing was done with the help of hemostat. Then after irrigation again thoroughly , this was packed with 2 x 2 roll and then dry Kerlix, sponge dressing was placed on the top and tape was placed. Instrument, needle, and sponge counts were correct. EBL minimal. Patient was recovere d from anesthesia in the OR and taken to PACU in stable condition. Discharge plan will be to keep her on the floor for 24 hours, remove her dressing, repeat her dressin g change tonight and then again tomorrow morning. Then, we will teach the patient's family member bailee perez to do her dressings. Then, leave her on the Zosyn for 48 hours and then put her on oral Augmentin and discharge her home with 12 days of antibiotics with that. Her sugars are very well controlled at this point. So, we will continue the same management and restart on her home medications. She will follow up with me in my office in 1 week. SUSAN/ROBB Voice ID: [id number] Report ID: [id number]
[2019-04-23] MEDS: PIPER/TAZO/NS 3.375gm 3.375 GM/100 ML BAG IVPB SCH ×3 (00:10→16:25)
[2019-04-23] MEDS: Ringers Lactate 1,000 ML IV SCH ×2 (02:00→10:00)
[2019-04-23 05:51] LABS: Absolute Lymphocytes (CBC) 2.9 K/uL (0.7-4.9); Basophils % 1.3 % (0-1.3); Hematocrit 29.6 % (36.0-45.0); Lymphocytes % 26.3 % (15.3-44.8); MPV 9.3 fL (7.6-11.3); RBC Red Blood Cell Count 3.19 M/uL (3.86-4.86)
[2019-04-23] MEDS ORDERED: PANTOPRAZOLE 40MG TABLET PO SCH (06:00)
[2019-04-23] MEDS ORDERED: HYDROCODONE/APAP 5/325 MG TAB PO ONE (07:59)
[2019-04-23] MEDS: IBUPROFEN 200 MG TAB PO PRN ×2 (08:22→13:48)
[2019-04-23] MEDS ORDERED: LOSARTAN POTASSIUM 50 MG TABLET PO SCH (09:00)
[2019-04-23] MEDS ORDERED: SPIRONOLACTONE 25 MG TABLET PO SCH (09:00)
[2019-04-23] MEDS ORDERED: METOPROLOL XL 50 MG TAB PO SCH (09:00)
[2019-04-23 09:36] VITALS: O2SAT 98
[2019-04-23 10:22] LABS: Blood Morphology Comment NOT SEEN (NOT SEEN); Platelet Estimate ADEQ
[2019-04-23] MEDS: ONDANSETRON 4 MG/2 ML VIAL IV PRN (10:41)
[2019-04-23] MEDS ORDERED: LIDOCAINE VISCOUS 2% SOLN 15 ML UDC ONE (12:05)
[2019-04-23 16:03] VITALS: BP 122/69; TEMP 97
== END 2019-04-23 18:29 | disposition home or self-care (01) | DRG 580 ==
LOC: 2ND 16:38
PROVIDERS: ADMIT Obstetrics & Gynecology; ATTEND Obstetrics & Gynecology
PROC: 0HD9XZZ Extraction of Perineum Skin, External Approach (ICD-10-PCS; 2019-04-22)
PROC: 0U9M0ZX Drainage of Vulva, Open Approach, Diagnostic (ICD-10-PCS; principal; 2019-04-22 07:30)
DX: L02.215 Cutaneous abscess of perineum (principal); N76.4 Abscess of vulva; N76.2 Acute vulvitis; E10.42 Type 1 diabetes mellitus with diabetic polyneuropathy; Z96.41 Presence of insulin pump (external) (internal); I10 Essential (primary) hypertension; Z23 Encounter for immunization
CPT/HCPCS: 36415; 80048; 81025; 82947; 85025; 87070; 87075; 87205; 88304; 88305; 90471; 90670; J1100; J1170; J2250; J2270; J2405; J2543; J2704; J3010; J7030; J7120

== ENCOUNTER 2019-04-30 14:41 | Observation (INO) | payer OTHER ==
--- OUTSIDE RECORDS SUMMARY | 2019-04-30 16:05 | XMS REPORT ---
:1980 [facility] [address] [place] [address] Dr. Neal [address] [place] [id number] Care Team Providers Name Role Phone Unavailable Unavailable Unavailable Problems This patient has no known problems. Allergies, Adverse Reactions, Alerts This patient has no known allergies or adverse reactions. Medications This patient has no known medications.
--- OUTSIDE RECORDS SUMMARY | 2019-04-30 16:05 | XMS REPORT ---
:1980 Author Organization [facility] Address Unavailable , Allergies, Adverse Reactions, Alerts [...]
[2019-04-30 18:39] LABS: BUN Blood Urea Nitrogen 13 mg/dL (7-18); Bicarbonate 29 mmol/L (21-32); Glucose Level 117 mg/dL (74-106); Potassium 3.8 mmol/L (3.5-5.1); Sodium Level 140 mmol/L (136-145)
[2019-04-30 18:48] VITALS: BMI 26.6
[2019-05-01] MEDS: PIPER/TAZO/NS 3.375gm 3.375 GM/100 ML BAG IVPB SCH ×3 (01:00→09:39)
[2019-05-01] MEDS ORDERED: HOME MED 1 EA UNK (Omeprazole [Prilosec] 40 MG) PO SCH (06:00)
[2019-05-01] MEDS ORDERED: [UNRECOGNIZED DRUG - REMARK] SQ SCH (09:00)
[2019-05-01] MEDS ORDERED: METOPROLOL XL 50 MG TAB PO SCH (09:00)
[2019-05-01] MEDS ORDERED: LOSARTAN POTASSIUM 50 MG TABLET PO SCH (09:00)
[2019-05-01] MEDS ORDERED: HOME MED 1 EA UNK (Spironolactone [Spironolactone] 50 MG) PO SCH (09:00)
--- NOTE | 2019-05-01 10:57 | RAD REPORT ---
EXAM DESCRIPTION: XR Chest Single View CLINICAL HISTORY: PICC Placement TECHNIQUE: Single frontal view of the chest is submitted. COMPARISON: None available for comparison FINDINGS: Heart: The cardiothoracic silhouette is within normal limits. Lungs: No focal consolidation. Mediastinum: Unremarkable Pleura: No appreciable effusion. No pneumothorax. Bones: Intact Upper abdomen: Unremarkable Other: Right upper extremity PICC tip projects over the proximal to mid superior vena cava. IMPRESSION: Right upper extremity PICC tip projects over the proximal to mid superior vena cava. Electronically signed by: Anette Leiva MD 05/01/2019 12:42 AM TELEPHONE SOLICITOR Due to temporary technical issues with the PACS/Fluency reporting system, reports are being signed by the in house radiologist as a courtesy to ensure prompt reporting. The interpreting radiologist is f ully responsible for the content of the report.
[2019-05-01 11:18] VITALS: O2SAT 98
[2019-05-01] MEDS ORDERED: LIDOCAINE VISCOUS 2% SOLN 15 ML UDC ONE (12:22)
[2019-05-01] MEDS ORDERED: metroNIDAZOLE 500 MG TABLET PO SCH (14:00)
[2019-05-01] MEDS ORDERED: VANCOMYCIN 1.25 GM in NA CHLORIDE 0.9% 250 ML IVPB ONE (14:00)
[2019-05-01] MEDS ORDERED: CEFEPIME/SWI 1gm 10 ML IV SCH (14:00)
[2019-05-01 18:28] VITALS: BP 108/70; TEMP 97.3
--- NOTE | 2019-05-01 19:25 | CON ---
History Of Present Illness: This is a 38-year-old female, I was consulted for evaluation of possible cellulitis versus abscess at the right groin area. The patient is diabetic since age 11. Works in [employer]. The patient claims that prior to admission few days ago, she had a cyst removed fr om her right groin area, which started about 20 years ago at , with no challenges for all th is time, but recently developed swelling and redness, and a CHINESE LANGUAGE PROFESSOR team was able to remove the cyst and was given Augmentin, Bactrim initially and then switched to Augmentin. Patient denies any fevers. N o pain except when touching the wound. Otherwise, no urinary tract infection symptoms or diarrhea or constipation. No abdominal pain. Past Medical History: Diabetes mellitus. Surgical History: and cyst removal from the right groin area. Family History: Noncontributory. Medications: Bactrim, Augmentin. See MAR for other medications. Allergies: NO KNOWN ALLERGIES. Social History: Nonsmoker, nondrinker. Family History: Noncontributory. Review of Systems: A 10-point review was performed. Physical Examination: General: This is a 38-year-old female, lying in bed, not in any acute cardiopulmonary distress. SKIN: Examination of the wound site, the right groin area shows patient has 0.7 x 1.5 x 2 cm undermi lio at 10 o'clock about 1 cm. A small hardening of the tissue noted at the posterior edge of the meyer rgical wound. No drainage. No foul smell. No erythematous changes at this time. Laboratory Data: WBC 10.7, hemoglobin 11.7, platelets are 419. Chemistry shows sodium 140, potassiu m 3.8, chloride 106, bicarb 26, BUN 13, creatinine 0.7, glucose is 117. Cultures from April 22 farhad ws no growth. Gram stain had gram-positive cocci in cluster. Assessment And Plan: A 38-year-old female with significant prolonged history of diabetes mellitus, c oming in after right groin cyst removal and leukocytosis. We will recommend to continue oral antibio tic at this time. Consider giving Bactrim DS and Flagyl, total of 10 days. Monitor CBC and BMP and continue local wound care with silver alginate packing. No new recommendation at this time. We will follow the patient as needed. Thank you for the consult. LONDON/ROBB Voice ID: [id number] Report ID: [id number]
== END 2019-05-01 19:45 | disposition home or self-care (01) ==
LOC: 2ND 16:03
PROVIDERS: ADMIT Surgery; ATTEND Obstetrics & Gynecology
PROC: 02HV33Z Insertion of Infusion Device into Superior Vena Cava, Percutaneous Approach (ICD-10-PCS; principal; 2019-04-30)
DX: L03.314 Cellulitis of groin (principal); N76.4 Abscess of vulva; E10.43 Type 1 diabetes mellitus with diabetic autonomic (poly)neuropathy; I10 Essential (primary) hypertension; Z96.41 Presence of insulin pump (external) (internal); K31.84 Gastroparesis
CPT/HCPCS: 80048; 36415; 82947 ×3; 71045; 99251; 36569; J2543; G0379; G0378 ×3; J0692; J7030

== ENCOUNTER 2020-01-23 12:00 | Emergency (ER) | payer OTHER ==
--- OUTSIDE RECORDS SUMMARY | 2020-01-23 12:06 | XMS REPORT | Continuity of Care Document ---
:1980 Author Organization [facility] t Address 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 03-19 An derso breast breast 00:00: n 00 Dizziness Problem Active 2018 Me moria (finding) 00:35:45 l Tez Dizziness (finding) Active Problem 2018 [facility] Hypothyroi Problem Active 2018 M emoria dism 00:35:45 l (disorder) Nadeem n Hypothyroi dism (disorder) Active Problem 2018 [facility] Paresthesi Problem Active 2018 M emoria a 00:35:45 l (finding) [place] Paresthesi a (finding) Active Problem 2018 [facility] Syncope Problem Active 2018 Chris dakota (disorder) 00:35:45 l Syncope Tez (disorder) Active Problem 2018 [facility] Americo' Americo' Disease Active M D s s Anderso thyroiditi thyroiditi n s s Hypertensi Hypertensi Disease Active M D on on Anderso n Type 1 Type 1 Disease Active diabetes diabetes Glenn o mellitus mellitus n Allergies, Adverse Reactions, Alerts Allergy Allergy Status Severity Reaction(s) Onset Inactive Treating Comm ents Source Name Type Date Date Clinician No Known No Known Active Stepanori a Medicati Medicati l on on [place] Allergie Allergie s s Family History Family Member Diagnosis Comments Start Date Stop Date Source Maternal grandfather Melanoma MD Holley juarez Maternal great-grandmother Breast cancer MD Tay Maternal great-grandmother Uterine cancer MD Tay Paternal grandfather Prostate cancer MD Tay Paternal grandmother -Other cancer Kailee Perez [place] Paternal uncle Prostate cancer MD Alena anderson Social History Social Habit Start Date Stop Date Quantity Comments Source Sex Assigned At MD Elizabeth on Social History 2018-09-17 2018-09-17 [facility] H ermann 16:45:04 16:45:04 Tobacco use and 2018-08-20 2018-08-20 Never used MD Elizabeth on exposure 00:00:00 00:00:00 Alcohol Comment 2018-08-20 2018-08-20 Occasional, not MD Holley juarez 00:00:00 00:00:00 specified Smoking Status Start Date Stop Date Source Never smoker MD Tay Medications Ordered Filled Start Stop Current Ordering Indication Dosage Frequency Signature Comments Components Source Medication Medication Date Date Medication? Clinician (SIG) Name Name Insulin Yes 1 ea, Memoria Pump -02 MISC, l Misc/Other 16:46: ONCE, Will H ermann 00 require a certificat e of medical necessity for reimbursme nt from Medicare/i nsurance, # 1 ea, 0 Refill(s) metoprolol 2019- Yes 50 mg = 1 Me moria tartrate 50 7-02 tab, PO, l mg oral 16:22: Daily, 0 Nadeem n tablet 00 Refill(s) losartan 25 2019- Yes 25 mg = 1 M emoria mg oral 7-02 tab, PO, l tablet 16:22: Daily, # [place] 00 30 tab, 0 Refill(s) Nitrofurant 2018- Yes 100 mg, Mem oria oin 7-02 PO, Daily, l 16:22: # 14 cap, [place] 00 0 Refill(s) losartan 2018- Yes (COZAAN) 25 5-29 Anderso mg tablet 18:03: n 58 insulin 2018- Yes by aspart 5-29 continuous Anderso (NovoLOG) 18:03: subcutaneo n 100 58 us units/mL infusion injection route for insulin continuous pump . For use in insulin pump. multivitami 2019- Yes Take by MD potter 5-29 mouth. Anderso (multivitam 18:03: n in) tablet 58 metoprolol Yes TAKE 1 succinate 4-08 TABLET BY Bertram coffey (TOPROL XL) 00:00: MOUTH n 25 mg 24 hr 00 EVERY DAY tablet Vital Signs Vital Name Observation Time Observation Value Comments Source Weight 2018-09-17 16:17:00 [facility] BMI Calculated 2018-09-17 16:17:00 Marietta Aguilar Height 2018-09-17 16:17:00 162.56 cm [facility] Respitory Rate 2018-09-17 16:17:00 Marietta Aguilar Heart Rate 2018-09-17 16:17:00 Dorene Reagan Systolic (mm Hg) 2018-09-17 16:17:00 Chris Reagan Diastolic (mm Hg) 2018-09-17 16:17:00 [facility] blu Reagan Procedures Procedure Date / Time Performed Performing Clinician Carlton ramírez Rotator cuff repair [facility] Start End Encounter Admission Attending Care Care Encounter Source Date/Time Date/Time Type Type Clinicians Facility Department ID 2018-11-14 2018-11-15 Outpatient MHMISCHER MISCHER [id number] 15:28:48 23:59:59 2018-09-23 2018-09-24 Outpatient MISCHER MISCHER [id number] 08:42:00 23:59:59 00 2018-09-17 2018-09-17 [id number] 11:15:00 23:59:59 Jose 00 Thomas Results This patient has no known results.
--- OUTSIDE RECORDS SUMMARY | 2020-01-23 12:06 | XMS REPORT | Continuity of Care Document ---
:1980 Author Organization [facility] Care Team Providers Name Role Phone [facility] Unavailable Un available Problems Problem Status Onset Classification Date Comments Sourc e Date Reported Dizziness Active Problem 2018 [facility] (finding) Neuro Hypertensive Active Problem 2018 M[facility] r disorder, systemic N euro arterial (disorder) Hypothyroidism Active Problem 2018 Misc her (disorder) Neuro Paresthesia Active Problem 2018 [facility] (finding) Neuro Syncope (disorder) Active Problem 2018 [facility] Diabetes mellitus Active Problem 2018 M ischer type 1 (disorder) Ne uro Medications Medication Details Route Status Patient Ordering Order Source Instructions Provider Date Insulin Pump 1 ea, MISC, Active [facility] Misc/Other ONCE, Will 019 Neuro require a certificate of medical necessity for reimbursment from Medicare/insur aristidse, # 1 ea, 0 Refill(s) metoprolol 50 mg = 1 tab, Active Mische r tartrate 50 mg PO, Daily, 0 019 Neur o oral tablet Refill(s) losartan 25 mg 25 mg = 1 tab, Active Mi marily oral tablet PO, Daily, # 019 Neuro 30 tab, 0 Refill(s) Nitrofurantoin 100 mg, PO, Active Misch er Daily, # 14 019 Neuro cap, 0 Refill(s) Allergies, Adverse Reactions, Alerts Substance Category Reaction Severity Reaction Status Date Comments S ource type Reported No Known Assertion Drug Misch er Medication allergy Neuro Allergies Immunizations No Data Provided for This Section Results No Data Provided for This Section Pathology Reports No Data Provided for This Section Diagnostic Reports No Data Provided for This Section Consultation Notes No Data Provided for This Section Discharge Summaries No Data Provided for This Section History and Physicals No Data Provided for This Section Vital Signs Vital Sign Value Date Comments Source Weight 70.909 09/17/2018 [facility] BMI Calculated 26.83 09/17/2018 [facility] Height 162.56 cm 09/17/2018 [facility] Neuro Respitory Rate 16 09/17/2018 [facility] Neuro Heart Rate 88 09/17/2018 [facility] Neuro Systolic (mm Hg) 116 09/17/2018 [facility] Karis ro Diastolic (mm Hg) 86 09/17/2018 [facility] Ne uro Encounters Location Location Encounter Encounter Reason Attending ADM OR Stat us Source Details Type Number For Provider Date Date Visit Outpatient [id number] Jose 09/17 [facility] Tez MNA Outpatient [id number] Jose 09/17 09/18 [facility] Neurology Kre /2018 Neuro Weber MNA Outside [id number] 09/23 09/25 [facility] Neurology Medical Neuro Weber Records MNA Outside [id number] 11/14 11/16 [facility] Neurology Medical Neuro Weber Records Procedures Procedure Code Date Perfomer Comments Source Rotator cuff [id number] [facility] Neur o repair Assessment and Plan No Data Provided for This Section Plan of Care No Data Provided for This Section Social History Social History Date Source Social History TypeResponse 09/17/2018 [facility] Neur o Employment/School Status: Employed. Smoking Status Never smoker; Exposure to Tobacco Smoke None; Cigarette Smoking Last 365 Days No; Reg Smoking Cessation Counseling No entered on: 09/17/18 Family History No Data Provided for This Section Advance Directives No Data Provided for This Section Functional Status No Data Provided for This Section
[2020-01-23] MEDS ORDERED: LIDOCAINE 1% MPF 30 ML VIAL ONE (12:52)
[2020-01-23 13:15] LABS: Absolute Lymphocytes (CBC) 1.8 K/uL (0.7-4.9); Basophils % 0.8 % (0-1.3); Hematocrit 35.4 % (36.0-45.0); Lymphocytes % 12.9 % (15.3-44.8); MPV 9.8 fL (7.6-11.3); RBC Red Blood Cell Count 3.96 M/uL (3.86-4.86)
[2020-01-23 13:18] LABS: Potassium 4.1 mmol/L (3.5-5.1)
[2020-01-23] MEDS ORDERED: CEFAZOLIN/SWI 1gm 1 GM/10 ML SYR ONE (13:44)
--- NOTE | 2020-01-23 14:02 | EDPHYS ---
Physician Documentation [facility] Name: Sophie Kendall Age: 39 yrs Sex: Female : 1980 Arrival Date: 01/23/2020 Time: 12:05 Bed 16 Private MD: Kevin Brambila ED Physician Bran Ramsey HPI: 01/22 16:01 This 39 yrs old Female presents to ER via Ambulatory with complaints of kdr Breast mass. 16:10 The patient has had a recurrent abscess to her breast. For the last 24-48 hours she has kdr had pain and swelling to the right breast. She denies fever. States that last night she felt like her right breast was on fire. . Onset: The symptoms/episode began/occurred gradually, 2 day(s) ago. Severity of symptoms: At their worst the symptoms were mild moderate just prior to arrival, in the emergency department the symptoms have improved mildly. The patient has experienced similar episodes in the past, a few times. The patient has been recently seen by a physician: Dr. rojas. 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 - Social history:: Smoking status: Patient denies any tobacco usage or history of. ROS: 16:10 Constitutional: Negative for fever, chills, and weight loss, Eyes: Negative for injury, kdr pain, redness, and discharge, Neck: Negative for injury, pain, and swelling, Cardiovascular: Negative for chest pain, palpitations, and edema, Respiratory: Negative for shortness of breath, cough, wheezing, and pleuritic chest pain, Abdomen/GI: Negative for abdominal pain, nausea, vomiting, diarrhea, and constipation, Back: Negative for injury and pain, : Negative for injury, bleeding, discharge, and swelling, MS/Extremity: Negative for injury and deformity, Neuro: Negative for headache, weakness, numbness, tingling, and seizure activity. Psych: Negative for depression, anxiety, suicide ideation, homicidal ideation, and hallucinations, Allergy/Immunology: Negative for hives, rash, and allergies, Endocrine: Negative for neck swelling, polydipsia, polyuria, polyphagia, and marked weight changes, Hematologic/Lymphatic: Negative for swollen nodes, abnormal bleeding, and unusual bruising. 16:10 Skin: Positive for abscess, cellulitis, of the right breast. Exam: 16:10 Constitutional: This is a well developed, well nourished patient who is awake, alert, kdr and in no acute distress. Eyes: Pupils equal round and reactive to light, extra-ocular motions intact. Lids and lashes normal. Conjunctiva and sclera are non-icteric and not injected. Cornea within normal limits. Periorbital areas with no swelling, redness, or edema. 16:10 Skin: abscess, that is small, of the right breast, with fluctuance, with induration, with surrounding cellulitis, that is mild, induration, that is mild is noted, located on the right breast. Vital Signs: 12:16 BP 134 / 84; Pulse 87; Resp 18; Temp 98.0; Pulse Ox 99% on R/A; Weight 68.04 kg; Height dh4 5 ft. 5 in. (165.10 cm); 14:45 BP 139 / 88; Pulse 85; Resp 17; Pulse Ox 99% ; Pain 2/10; ll1 12:16 Body Mass Index 24.96 (68.04 kg, 165.10 cm) dh4 MDM: 14:01 Patient medically screened. kdr 16:10 Data reviewed: vital signs, nurses notes. Counseling: I had a detailed discussion with kdr the patient and/or guardian regarding: the historical points, exam findings, and any diagnostic results supporting the discharge/admit diagnosis, the need for outpatient follow up. Physician consultation: Sebas Rojas MD. 16:16 ED course: Dr. Rojas was in the Dept to perform the I\T\D of the abscess. He managed kdr the patient procedure. 01/22 12:25 Order name: CBC with Diff; Complete Time: 13:57 kdr 01/22 12:25 Order name: Chem 7; Complete Time: 13:57 kdr 01/22 12:25 Order name: Blood Culture Adult (2) kdr 01/22 13:56 Order name: Wound Culture kdr Administered Medications: 13:53 Drug: Ancef 1 grams Route: IVPB; Site: left antecubital; ll1 14:48 Follow up: Response: No adverse reaction; RASS: Alert and Calm (0); IV Status: ll1 Completed infusion; IV Intake: 30ml Disposition: 01/23/20 14:01 Discharged to Home. Impression: Breast Abscess - right. - Condition is Stable. - Discharge Instructions: Skin Abscess, Klyn-hc-Uxbu. - Medication Reconciliation Form, Thank You Letter, Antibiotic Education, Prescription Opioid Use, Work release form form. - Follow up: Kevin Brambila MD; When: 2 - 3 days; Reason: If symptoms return, Further diagnostic work-up, Recheck today's complaints, Continuance of care, Re-evaluation by your physician. Follow up: Sebas Rojas MD; When: 2 - 3 days; Reason: If symptoms return, Further diagnostic work-up, Recheck today's complaints, Continuance of care, Re-evaluation by your physician. - Problem is an ongoing problem. - Symptoms have improved. - Notes: Please take the medications as directed by Dr. Rojas. Signatures: Dispatcher [employer] EDMS Bran Ramsey MD MD kdr Geovanna Ibanez RN RN ll1 Corrections: (The following items were deleted from the chart) 14:50 14:01 01/23/2020 14:01 Discharged to Home. Impression: Breast Abscess - right. ll1 Condition is Stable. Forms are Medication Reconciliation Form, Thank You Letter, Antibiotic Education, Prescription Opioid Use. Follow up: Kevin Brambila; When: 2 - 3 days; Reason: If symptoms return, Further diagnostic work-up, Recheck today's complaints, Continuance of care, Re-evaluation by your physician. Follow up: Sebas Rojas; When: 2 - 3 days; Reason: If symptoms return, Further diagnostic work-up, Recheck today's complaints, Continuance of care, Re-evaluation by your physician. Problem is an ongoing problem. Symptoms have improved. kdr
--- NOTE | 2020-01-23 14:02 | ER ---
Nurse's Notes [facility] Name: Sophie Kendall Age: 39 yrs Sex: Female : 1980 Arrival Date: 01/23/2020 Time: 12:05 Bed 16 Private MD: Kevin Brambila Diagnosis: Breast Abscess - right Presentation: 01/22 12:10 Chief complaint: Patient states: R breast abscess, no drainage or fever. Coronavirus ll1 screen: Client denies travel out of the [place] in the last 14 days. At this time, the client does not indicate any symptoms associated with coronavirus-19. Client reports previous positive COVID test result. Staff notified of need for isolation. Ebola Screen: Patient denies travel to an Ebola-affected area in the 21 days before illness onset. Initial Sepsis Screen: Does the patient meet any 2 criteria? No. Patient's initial sepsis screen is negative. Does the patient have a suspected source of infection? Yes: Skin breakdown/wound. Risk Assessment: Do you want to hurt yourself or someone else? Patient reports no desire to harm self or others. Onset of symptoms is unknown. 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 - Social history:: Smoking status: Patient denies any tobacco usage or history of. Screenin:44 Abuse screen: Denies threats or abuse. Nutritional screening: No deficits noted. ll1 Tuberculosis screening: No symptoms or risk factors identified. Fall Risk IV access (20 points). Total Gomez Fall Scale indicates No Risk (0-24 pts). Assessment: 12:15 General: Appears in no apparent distress. Behavior is calm, cooperative, appropriate ll1 for age. Pain: Complains of pain in R breast Pain currently is 2 out of 10 on a pain scale. Quality of pain is described as aching, Alleviated by rest, Aggravated by increased activity. Neuro: No deficits noted. Cardiovascular: No deficits noted. Respiratory: No deficits noted. Derm: Abscess located on Right breast is nickel sized, has no drainage, Reports abscess to right breast. 12:21 Reassessment: Dr Mercedes at the bedside. sv 13:15 Reassessment: Patient and/or family updated on plan of care and expected duration. Pain ll1 level reassessed. Patient is alert, oriented x 3, equal unlabored respirations, skin warm/dry/pink. 14:15 Reassessment: Patient and/or family updated on plan of care and expected duration. Pain ll1 level reassessed. Patient is alert, oriented x 3, equal unlabored respirations, skin warm/dry/pink. Patient states feeling better. Vital Signs: 12:16 BP 134 / 84; Pulse 87; Resp 18; Temp 98.0; Pulse Ox 99% on R/A; Weight 68.04 kg; Height dh4 5 ft. 5 in. (165.10 cm); 14:45 BP 139 / 88; Pulse 85; Resp 17; Pulse Ox 99% ; Pain 2/10; ll1 12:16 Body Mass Index 24.96 (68.04 kg, 165.10 cm) dh4 ED Course: 12:05 Patient arrived in ED. mr 12:05 Kevin Brambila MD is Private Physician. mr 12:10 Arm band placed on Patient placed in an exam room, on a stretcher. ll1 12:12 Bran Ramsey MD is Attending Physician. kdr 12:14 Geovanna Ibanez RN is Primary Nurse. ll1 12:15 Patient has correct armband on for positive identification. Bed in low position. Call ll1 light in reach. Side rails up X 1. Pulse ox on. NIBP on. 13:10 Inserted saline lock: 22 gauge in left antecubital area, using aseptic technique. Blood ll1 collected. 14:00 Kevin Brambila MD is Referral Physician. kdr 14:00 Sebas Mercedes MD is Referral Physician. kdr 14:05 Assist provider with I \T\ D: of an abscess on right breast Set up I\T\D tray. Performed by ll 1 Sebas Mercedes MD Culture sent to lab. Dressing with Neosporin and large band aid Patient tolerated well. 14:42 Triage completed. ll1 14:45 IV discontinued, intact, bleeding controlled, No redness/swelling at site. Pressure ll1 dressing applied. Administered Medications: 13:53 Drug: Ancef 1 grams Route: IVPB; Site: left antecubital; ll1 14:48 Follow up: Response: No adverse reaction; RASS: Alert and Calm (0); IV Status: ll1 Completed infusion; IV Intake: 30ml Intake: 14:48 IV: 30ml; Total: 30ml. ll1 Outcome: 14:01 Discharge ordered by . kdr 14:49 Discharged to home ambulatory. ll1 14:49 Condition: stable 14:49 Discharge instructions given to patient, Instructed on discharge instructions, follow up and referral plans. medication usage, Demonstrated understanding of instructions, follow-up care, medications, wound care, Prescriptions given X 3. 14:50 Patient left the ED. ll1 Addendum: 01/26/2020 10:14 Addendum: Culture Results: Positive wound culture. No further action required. Other: i w pt was prescribed Bactrim by Dr. Mercedes, bacteria is susceptible . Signatures: Judy Poe, Bran Jo RN, MD MD [facility] Farzaneh Donna Apodaca RN BEN Mango [facility] Geovanna Ibanez RN RN 1
[2020-01-23 15:19] VITALS: TEMP 98; O2SAT 99
[2020-01-23 15:20] VITALS: BP 139/88
--- NOTE | 2020-01-23 18:43 | CON ---
Date of Consultation: 01/23/2020 Reason For Service: Right breast abscess and cellulitis. History Of Present Illness: This is the case of a 39-year-old patient comes today to the ER complain ing of right breast erythema associated with a lump with fluctuance present, consistent with cellulit is and abscess. She has been taking steroid medications. She was on antibiotics previously. She no pito that getting worse, come to the ER and a surgical consult was obtained. She denies any dysuria, hematuria, hematochezia, melena. Denies any recent traveling out of the country. Denies any family member sick at home. Apparently, she was a COVID positive several weeks ago and that has apparently taken care of since been almost a month from now. Precautions were obtained. Past Medical History: Include diabetes. Allergies: NONE. Medications: Steroid medication. Family History: Noncontributory. Social History: She does not smoke. She does not drink alcohol. Review of Systems: Ten points otherwise unremarkable. No shortness of breath. No chest pain. No fever at this moment. Physical Examination: General: The patient is awake, alert. HEENT: Pupils are equal and reactive, anicteric. Neck: Supple. Chest: Clear. Abdomen: Soft and depressible. On the right breast, the patient has an area of about 1.5 x 1.5 cm o f area of cellulitis on the inner lower quadrant of the breast, right inner lower quadrant. There is evidence of fluctuance the present consistent with cellulitis and abscess. No nipple discharge. No bleeding. Extremities: Good capillary refill. Blood sugar. Laboratory Data: Blood work shows WBC count of 13.8, hemoglobin of 12.2, platelets of 389, and gluco se 389. Potassium is 4.1. Assessment: A 39-year-old patient with an abscess and cellulitis of the right breast. It is small e nough to be done here at the ER, so we explained to her the procedure including incision and drainage of abscess with benefits, alternatives, and risks including, but not limited to infection, bleeding, damage to adjacent structures, anesthesia complication, nonhealing wound, IL, and . She also u nderstands this may not relieve symptoms. She might need more than one surgical intervention. She u nderstands also after that we might have to put some Bactroban over the area. She is going to be on p.o. antibiotics. I see previous cultures, but they were basically inconclusive for this area. She understands the importance of glucose control. She is 389 at this moment. Procedure: Incision and drainage with breast biopsy of the right breast. Description Of Procedure: After obtaining consent, time-out under aseptic condition using lidocaine viscous for local anesthetic and after prepping the area in usual sterile fashion and after time-out, we proceeded to do an incision. Pus was obtained. Abscess was explored. No foreign body seen. Th e area was profusely irrigated after culture. Hemostasis obtained and then the area was covered with triple antibiotics and a sterile dressing. This was done with local anesthetic. The patient tolera kashif the procedure well. The remainder of the service and the disposition will be under the charge of the primary doctor and the ER physician. We just asked her to continue Bactroban daily and follow u p in my office in 1 week thank you. KEE Voice ID: [id number] Report ID: [id number]
== END 2020-01-23 14:50 | disposition home or self-care (01) ==
LOC: ER 12:00
PROC: 0H9T0ZZ Drainage of Right Breast, Open Approach (ICD-10-PCS; principal; 2020-01-23)
DX: N61.1 Abscess of the breast and nipple (principal); Z86.19 Personal history of other infectious and parasitic diseases; I10 Essential (primary) hypertension; Z98.82 Breast implant status
CPT/HCPCS: 96365; 87040 ×2; 87070; 85025; 80048; 36415; 87205; 88305; 87077; 87186; 99284; 10060; J0690

== ENCOUNTER 2021-09-08 06:11 | Day surgery (SDC) | payer BC ==
[2021-09-07 11:47] LABS: Specific Gravity 1.015 (1.005-1.030)
[2021-09-08] MEDS ORDERED: NA CHLORIDE 0.9% 1,000 ML ONE (06:28)
[2021-09-08] MEDS ORDERED: FENTANYL CITR 100 MCG/2 ML ONE (06:48)
[2021-09-08] MEDS ORDERED: MIDAZOLAM HCL 2 MG/2 ML INJ ONE (06:48)
[2021-09-08] MEDS ORDERED: ONDANSETRON 4 MG/2 ML VIAL ONE ×2 (06:48→08:31)
[2021-09-08] MEDS ORDERED: propofoL 200 MG/20 ML VIAL IV ONE (06:48)
[2021-09-08] MEDS ORDERED: KETOROLAC 30 MG/ML INJ ONE (06:48)
[2021-09-08] MEDS ORDERED: LIDOCAINE 2% MPF 5 ML VIAL ONE (06:48)
[2021-09-08] MEDS ORDERED: CELECOXIB 100 MG CAPSULE ONE (07:09)
[2021-09-08] MEDS ORDERED: ACETAMINOPHEN 500 MG TAB ONE (07:09)
[2021-09-08] MEDS ORDERED: MORPHINE 4 MG/ML SYR ONE (07:40)
[2021-09-08] MEDS: HYDROMORPHONE HCL 1 MG/ML INJ ONE ×2 (07:42→07:48)
--- NOTE | 2021-09-08 07:47 | RAD REPORT ---
EXAM DESCRIPTION: RAD - Fluoroscopy <1 Hour - 09/08/2021 7:36 am CLINICAL HISTORY: Shoulder manipulation FINDINGS: Shoulder manipulation performed by Dr. Parsons 3 fluoroscopic spot images are submitted. Fluoroscopy time 0 minutes
[2021-09-08] MEDS ORDERED: HYDROMORPHONE HCL 1 MG/ML INJ ONE (07:59)
[2021-09-08] MEDS ORDERED: HYDROCODONE/APAP 10/325 TAB ONE (08:56)
[2021-09-08 09:27] VITALS: TEMP 97.8
[2021-09-08 09:29] VITALS: BP 130/72; O2SAT 100
--- NOTE | 2021-09-08 16:11 | OP ---
Date of Procedure: 09/08/2021 Surgeon: Russell Parsons MD Preoperative Diagnosis: Right shoulder stiffness, pain, probable adhesive capsulitis. Postoperative Diagnosis: Right shoulder stiffness, pain, probable adhesive capsulitis. Procedures: Right shoulder manipulation under anesthesia. Estimated Blood Loss: 0 cc. Specimen: No pathology specimen sent. Indication For Operation: The patient was seen in my office with complaints of right shoulder pain. She does have an MRI which shows perhaps slight thickening of the capsule as well as probable labral tear and involvement of the rotator cuff without large tear. She has had a previous left rotator cu ff repair done by another physician and is aware of the situation regarding her MRI. She has had an injection of her shoulder, which caused significant difficulties with her diabetes management. She d oes not request injection. She has elevation to approximately 160 degrees and external rotation to s lightly past neutral. This is associated with pain and decreased function. I discussed with her pos sible management including repeated injection or operative intervention regarding her shoulder as she has done extensive physical therapy without relief. She understands everything as presented and act ually requests and elects manipulation under anesthesia for possible adhesive capsulitis. Risks, yanique efits, and alternatives of this particular procedure have been discussed with her. She states she un derstands things as presented and wishes to proceed. Description Of Procedure: The patient was taken to the operating room and placed in supine position. General anesthesia was obtained by staff. Following this, succinylcholine was used to act as a par alytic. After this, the right shoulder was compared to the left and it indeed had limited passive ex ternal rotation as well as elevation in abduction. Attention was first turned to elevation and abduc tion where the shoulder was then placed at full flexion and abduction with some feeling of release of adhesions. This was followed by external rotation until the shoulder externally rotated to 90 degre es, which is symmetrical with the contralateral side. Internal rotation was then tested and found to be symmetric with the contralateral side without significant release. After this, the C-arm was use d and 2 AP of the shoulder was taken, which did not demonstrate any fracture or dislocation. The pat ient was then awakened, taken to recovery room in good condition. No complications. SE/MODL Voice ID: [id number] Report ID: [id number]
== END 2021-09-08 09:08 | disposition home or self-care (01) ==
LOC: OR 06:11
PROVIDERS: ATTEND Orthopaedic Surgery
PROC: 0RNJXZZ Release Right Shoulder Joint, External Approach (ICD-10-PCS; principal; 2021-09-08 07:00)
DX: M25.611 Stiffness of right shoulder, not elsewhere classified (principal); Z20.822 Contact with and (suspected) exposure to COVID-19
CPT/HCPCS: 81025; 82947 ×2; 76000; 23700; U0003; J2704; J2250; J3010; J1170; J7030; J2405 ×2

== ENCOUNTER 2022-02-27 19:40 | Emergency (ER) | payer BC ==
--- OUTSIDE RECORDS SUMMARY | 2022-02-27 19:44 | XMS REPORT | Clinical Summary ---
:1980 Author Organization [facility] MD [facility] Address [address] [place] [address] Care Team Providers Name Role Phone Rachael Luke MD Primary Care Provider Jody Woods MD Unavailable Kevin Brambila MD Unavailable Unavailable Lore Chen MD Unavailable [phone] Darrin Cifuentes Unavailable Allergies No known active allergies Medications Medication Sig Dispensed Refills Start Date End Date Status losartan (COZAAR) 25 0 Active mg tablet metoprolol succinate TAKE 1 TABLET BY 1 06/24/2018 Active (TOPROL XL) 25 mg 24 MOUTH EVERY DAY hr tablet insulin aspart by continuous 0 A ctive (NovoLOG) 100 subcutaneous units/mL injection infusion route for insulin pump continuous. For use in insulin pump. multivitamin Take by mouth. 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 Hypertension Type 1 diabetes mellitus Surgical History Surgery Date Site/Laterality Comments BIOPSY EXCISIONAL BREAST 03/19/2011 - 03/18/2012 Left ROTATOR CUFF REPAIR Left CHOLECYSTECTOMY AUGMENTATION MAMMAPLASTY W/PROSTHETIC 03/19/2012 - 03/18/2013 Bila teral IMPLANT TONSILLECTOMY 03/19/2011 - 03/18/2012 DILATION AND CURETTAGE OF UTERUS Medical History Medical History Date Comments Type 1 diabetes mellitus Hypertension Uterine leiomyoma Unspecified ovarian cysts Fibroadenoma of left breast 2011 History of elective breast augmentation Americo's thyroiditis Hypertension Adhesive capsulitis of left shoulder Family History Medical History Relation Name Comments Melanoma Maternal Grandfather Breast cancer Maternal Great-Grandmother Uterine cancer Maternal Great-Grandmother Prostate cancer Paternal Grandfather -Other cancer Paternal Grandmother Prostate cancer Paternal Uncle Relation Name Status Comments Maternal Grandfather Maternal Great-Grandmother Paternal Grandfather Paternal Grandmother labial, ure thral Paternal Uncle Social History Tobacco Use Types Packs/Day Years Used Date Smoking Tobacco: Never Smokeless Tobacco: Never Tobacco Cessation: Counseling Given: No Sex Assigned at Date Recorded Not on file Obstetrics History Para Term AB IAB SAB Ectopic Multiple Living Live Births 4 1 Date Outcome GA Total Labor/2nd/3rd Weight Sex Delivery Anes PTL Hien A 1 A5 Name Clin Labor Para Comments Parity - 27 Menarche 12 Premenopausal, LMP 06/17/18 6 weeks- 3 months OCP 7-8 years Last Filed Vital Signs Not on file Plan of Treatment Health Maintenance Due Date Last Done Comments COVID-19 Vaccination (#1) 05/19/1983 Results Not on fileafter 02/27/2021 Insurance Payer Benefit Plan / Subscriber ID Effective Dates Phone Addre ss Type Group [employer] MANAGED CIGNA HMO POS [id number] 2018-Present [id number] [place] [address] Sophie Barahona Personal/Family Self 1980 [address] [place] [address] Sophie Barahona Personal/Family Self 1980 [address] [place] [address] Care Teams Second Chef Relationship Specialty Start Date End Date Rachael Luke MD PCP - General Breast Surgery 07/30/18 [address] [place], [place] [id number] Jody Woods, PCP - External Obstetrics/Gynecology 07/30/18 MD Referring [facility] [address] [place] [address] Kevin Brambila MD Physician Family Practice 08/14/18 Lore Chen Physician Endocrinology 08/14/18 MD Lacey Darrin Cifuentes Physician Cardiology 08/14/18 [address] [facility] [address] [place] [address]
--- OUTSIDE RECORDS SUMMARY | 2022-02-27 19:45 | XMS REPORT | Continuity of Care Document ---
:1980 [facility] t Address [address] [place] [address] Care Team Providers Name Role Phone GISSELLE COBURN Primary Care Physician Unavailable Kevin Brambila Attending Clinician Unavailable Angeles Graves Attending Clinician Unavailable WATERS_S Attending Clinician Unavailable FABRIZIO LONG Attending Clinician Unavailable Doctor Unassigned, [place] Attending Clinician Unavailable Sharron Lancaster MD Attending Clinician SHARRON LANCASTER Attending Clinician Unavailable Yung Clay MD Attending Clinician April Chairez Attending Clinician [phone] FAVIAN SARAH Attending Clinician Unavailable Raju_P Attending Clinician Unavailable Jose Adams Attending Clinician WATERS_S Admitting Clinician Unavailable Raju_P Admitting Clinician Unavailable Payers Payer Name Policy Type Policy Number Effective Date Expiration Date Xavier jessica ALEXY (EPO) [id number] 2020 2021 00:00:00 00:00:00 OUT OF STATE [id number] BCBS - PPO - BCBS Problems Condition Condition Condition Status Onset Resolution Last Treating Co mments Source Name Details Category Date Date Treatment Clinician Date 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 Diabetes 3-30 Commun i mellitus Mellitus 00:00: ty [facility] Gastroesop Gastroesop Problem Active S weennataliya hageal hageal 330 Communi reflux Reflux 00:00: ty disease Disease 00 Hospita l Clinics Breast Breast Disease Active 2019-03 Methodi density density 2-15 st 00:00: Hospita 00 l Breast Breast Disease Active 2019-03 Methodi mass, mass, 15 st right right 00:00: Hospita 00 l Fibroadeno Fibroadeno Disease Active U gabriela ma of left ma of left 03-19 it y of breast breast 00:00: [place] 00 MD [facility] Paresthesi Paresthes Problem Active 2018 Memoria a ia 00:35:45 l (finding) (finding) Herm bishop Active Problem 2018 [facility] Syncope Syncope Problem Active 2018 Me moria (disorder) (disorder) 00:35:45 l Active [place] Problem 2018 [facility] Dizziness Dizziness Problem Active 2018 Memoria (finding) (finding) 00:35:45 l Active [place] Problem 2018 [facility] Hypothyroi Hypothyro Problem Active 2018 Memoria dism idism 00:35:45 l (disorder) (disorder) He rmann Active Problem 2018 [facility] Americo' Americo' Disease Active U gabriela s s ity of thyroiditi thyroiditi [facility] Hypertensi Hypertensi Disease Active U gabriela on on ity of [facility] Type 1 Type 1 Disease Active Univers diabetes diabetes ity of mellitus mellitus [place] MD [facility] No known No known Disease [facility] r active active College problems problems of Medicin e Allergies, Adverse Reactions, Alerts This patient has no known allergies or adverse reactions. Family History Family Member Diagnosis Comments Start Date Stop Date Source Paternal grandmother -Other cancer [facility] Paternal uncle Prostate cancer [facility] [place] [facility] Maternal grandfather Melanoma [facility] [place] [facility] Maternal grandfather Colon cancer [facility] Maternal grandfather Skin cancer Met [facility] [place] [facility] Maternal Breast cancer [facility] great-grandmother MD [facility] Maternal Uterine cancer [facility] great-grandmother MD Reilly [facility] Paternal grandfather Prostate cancer [facility] Maternal grandmother Cancer Meth [facility] Natural mother Skin cancer [facility] Social History Social Habit Start Date Stop Date Quantity Comments Source History [facility] ge of Alcohol Frequency Medicin e History [facility] ge of Alcohol Std Medicine Drinks History [facility] ge of Alcohol Binge Medicine Exposure to 2021-10-07 2021-10-17 Not sure [facility] e of SARS-CoV-2 00:00:00 10:44:00 Medicine (event) Tobacco use and 2020-03-02 2020-03-02 Smokeless tobacco Me [facility] exposure 00:00:00 00:00:00 non-user Hospital Alcohol intake 2020-03-02 2020-03-02 Current drinker [facility] 00:00:00 00:00:00 of alcohol Hospital (finding) Social History 2018-09-17 2018[facility] 16:[facility] 16:45:04 Alcohol Comment 2018-08-20 2018-08-20 Occasional, not Univ ersity of 00:00:00 00:00:00 specified [place] [facility] [place] Sex [birth year] [employer] 00:00:00 00:00:00 Hospital Smoking Status Start Date Stop Date Source Never smoker [facility] Medications Ordered Filled Start Stop Current Ordering Indication Dosage Frequency Signature Comments Components Source Medication Medication Date Date Medication? Clinician (SIG) Name Name losartan Yes Luis Daniel (COZAAR) 50 10-17 College MG tablet 12:13: of 53 Medicin e omeprazole Yes 10mg Take 10 mg B aylor (PRILOSEC) 10-17 by mouth Colle ge 10 MG 12:13: daily. of capsule 53 Medicin e diltiazem Yes [facility] 120 MG TABS 10-17 [place] 11:35: of 51 Medicin e Cobalamin Yes [facility] Combination 8 [place] s (B-12) 11:35: of 100-5000 51 Medicin MCG SUBL e busPIRone Yes 1{tbl} Take 1 [facility] or (BUSPAR) 10 6-21 Tablet by Col lege MG tablet 00:00: mouth two of 00 times Medicin daily. e ketorolac 2021- No [id number] [place] marlena (TORADOL) 06-08 [place] 15 mg/mL 15 14:15: 14:05 of mg, 00 :00 Medicin lidocaine e 1% (10 mg/mL) 1 mL injection ketorolac 2021- No [id number] Intra-debby [facility] (TORADOL) 06-08 [facility] 15 mg/mL 15 14:15: 14:05 ONCE, 1 of mg, 00 :00 dose, On Medicin lidocaine Wed e 1% (10 06/08/21 at mg/mL) 1 mL 0915 injection diltiazem Yes [facility] (CARDIZEM) 06-08 [place] 120 MG TABS 08:23: of 00 Medicin e Cobalamin Yes [facility] Combination 06-08 [facility] (B-12) 08:23: of 100-5000 00 Medicin MCG SUBL e losartan Yes [facility] (COZAAR) 50 06-08 [place] MG tablet 08:23: of 00 Medicin e rosuvastati Yes TAKE 1 [facility] or n (CRESTOR) 2-01 TABLET BY Col lege 10 MG 00:00: MOUTH of tablet 00 EVERY Medicin NIGHT AT e BEDTIME rosuvastati Yes TAKE 1 [facility] or n (CRESTOR) 2-01 TABLET BY Col lege 10 MG 00:00: MOUTH of tablet 00 EVERY Medicin NIGHT AT e BEDTIME HUMALOG 100 Yes USE 100 [place] marlena UNIT/ML 1-09 UNITS College injection 00:00: UNDER THE of 00 SKIN DAILY Medicin VIA e INSULIN PUMP HUMALOG 100 Yes USE 100 [place] marlena UNIT/ML 1-09 UNITS College injection 00:00: UNDER THE of 00 SKIN DAILY Medicin VIA e INSULIN PUMP losartan 2020-03 Yes 50mg Take 50 mg [place] marlena (COZAAR) 50 2-30 by mouth Angélica ege MG tablet 00:00: daily. of Medicin e losartan 2020-03 Yes 50mg Take 50 mg [place] marlena (COZAAR) 50 2-30 by mouth Angélica ege MG tablet 00:00: daily. of Medicin e insulin 2019-03 Yes [id number] Inject Me thodi ASPART 2-[id number] (NovoLOG) 11:28: 3D skin 3 Hospit a 100 unit/mL 18 (three) l injection times a day before meals. doxycycline 2019-03 Yes 100mg Q.5D Take 100 M ethodi (VIBRAMYCIN 2-[address] ) 100 MG 11:28: mouth 2 Hospit a oral dosage 18 (two) l form times a day. losartan 2019-03 Yes 50mg QD Take 50 mg Met hodi (COZAAR) 50 1-[address] MG tablet 00:00: daily. Hospit a 00 l metoprolol 2019-03 Yes 25mg QD Take 25 mg M ethodi succinate 1-[address] XL 00:00: daily. Hospita (TOPROL-XL) 00 l 25 mg 24 hr tablet spironolact 2019-03 Yes TAKE 1 [place] one 1-[address] (ALDACTONE) 00:00: MOUTH Hospi ta 100 MG 00 EVERY DAY l tablet WITH FOOD AND WATER Insulin Yes 1 ea, Memoria Pump 702 MISC, l Misc/Other 16:46: ONCE, Will H ermann 00 require a certificat e of medical necessity for reimbursme nt from Medicare/i nsurance, # 1 ea, 0 Refill(s) metoprolol Yes 50 mg = 1 Me moria tartrate 50 7-02 tab, PO, l mg oral 16:22: Daily, 0 Nadeem n tablet 00 Refill(s) losartan 25 Yes 25 mg = 1 M emoria mg oral 7-02 tab, PO, l tablet 16:22: Daily, # [place] 00 30 tab, 0 Refill(s) Nitrofurant Yes 100 mg, Mem oria oin 7-02 PO, Daily, l 16:22: # 14 cap, [place] 00 0 Refill(s) losartan Yes Univers (COZAAR) 25 - ity of mg tablet 13:03: [place] 58 MD [facility] insulin 2018- Yes by Univers aspart 08-14 continuous ity of (NovoLOG) 13:03: [place]o [place] 100 58 units/mL infusion Anderso injection route n for insulin continuous Ca ncer pump . For use Center in insulin pump. multivitami Yes Take by Uni vers n 5-29 mouth. ity of (multivitam 13:03: [place] in) tablet 58 MD Denisse potter [facility] metoprolol Yes 100mg Take 100 Un dorys succinate 4-08 mg by ity of XL 100 mg 14:42: mouth [place] 24 hr 54 daily. Medical tablet Branch metoprolol Yes 100mg Take 100 Un dorys succinate 4-08 mg by ity of XL 100 mg 14:42: mouth [place] 24 hr 54 daily. Medical tablet Branch metoprolol Yes 100mg Take 100 Un dorys succinate 4-08 mg by ity of XL 100 mg 14:42: mouth [place] 24 hr 54 daily. Medical tablet Branch metoprolol Yes 100mg Take 100 Un dorys succinate 4-08 mg by ity of XL 100 mg 14:42: mouth [place] 24 hr 54 daily. Medical tablet Branch metoprolol Yes TAKE 1 Unive rs succinate 4-08 TABLET BY ity o f (TOPROL XL) 00:00: MOUTH [place] 25 mg 24 hr 00 EVERY DAY MD abbey Salcedo [facility] diclofenac 2018-0 Yes 75mg Take 1 Unive rs 75 mg EC 3-26 tablet by ity of tablet 00:00: mouth 2 [place] 00 (two) Medical times Branch daily with meals. diclofenac 0 Yes 75mg Take 1 Unive rs 75 mg EC 3-26 tablet by ity of tablet 00:00: mouth 2 [place] 00 (two) Medical times Branch daily with meals. diclofenac 2018-0 Yes 75mg Take 1 Unive rs 75 mg EC 3-26 tablet by ity of tablet 00:00: mouth 2 [place] 00 (two) Medical times Branch daily with meals. diclofenac 2018-0 Yes 75mg Take 1 Unive rs 75 mg EC 3-26 tablet by ity of tablet 00:00: mouth 2 [place] 00 (two) Medical times Branch daily with meals. HUMALOG 100 2017-03 Yes BASAL Unive rs UNIT/ML SC 0-26 1UNIT/HOUR ity of SOLN 09:18: FROM 12 AM [place] 27 TO 6:30AM, Medical 1.5 Branch UNITS/24 HOURS FROM 6:30 AM TO 12OPM AVANDAMET 2017-03 Yes 2 TABS Univer s 2-500 MG 0-26 TWICE A ity of ORAL TAB 09:18: DAY [place] [address] Medical Branch insulin 2017-03 Yes inject Univers aspart 0-26 under the ity of RAPID 100 09:18: skin 3 [place] unit/mL 27 (three) Medical injection times Branch daily before meals. losartan 2017-03 Yes 50mg Take 50 mg Uni vers (COZAAR) 50 0-26 by mouth ity of mg tablet 09:18: daily. [address] Branch Nitrofurant 2017-03 Yes 100mg Take 100 U nivers oin&Nit. 0-26 mg by ity of Macrocryst 09:18: mouth. [place] (MACROBID) Medical 100 mg Branch capsule HUMALOG 100 2017-03 Yes BASAL Unive rs UNIT/ML SC 0-26 1UNIT/HOUR ity of SOLN 09:18: FROM 12 AM [place] TO 6:30AM, Medical 1.5 Branch UNITS/24 HOURS FROM 6:30 AM TO 12OPM AVANDAMET 2017-03 Yes 2 TABS Univer s 2-500 MG 0-26 TWICE A ity of ORAL TAB 09:18: DAY [address] Branch insulin 2017-03 Yes inject Univers aspart 0-26 under the ity of RAPID 100 09:18: skin 3 [place] unit/mL 27 (three) Medical injection times Branch daily before meals. losartan 2017-03 Yes 50mg Take 50 mg Uni vers (COZAAR) 50 0-26 by mouth ity of mg tablet 09:18: daily. [address] Nitrofurant 2017-03 Yes 100mg Take 100 U nivers oin&Nit. 0-26 mg by ity of Macrocryst 09:18: mouth. [place] (MACROBID) Medical 100 mg Branch capsule HUMALOG 100 2017-03 Yes BASAL Unive rs UNIT/ML SC 0-26 1UNIT/HOUR ity of SOLN 09:18: FROM 12 AM [place] 27 TO 6:30AM, Medical 1.5 Branch UNITS/24 HOURS FROM 6:30 AM TO 12OPM AVANDAMET 2017-03 Yes 2 TABS Univer s 2-500 MG 0-26 TWICE A ity of ORAL TAB 09:18: DAY [address] insulin 2017-03 Yes inject Univers aspart 0-26 under the ity of RAPID 100 09:18: skin 3 [place] unit/mL 27 (three) Medical injection times Branch daily before meals. losartan 2017-03 Yes 50mg Take 50 mg Uni vers (COZAAR) 50 0-26 by mouth ity of mg tablet 09:18: daily. [address] Nitrofurant 2017-03 Yes 100mg Take 100 U nivers oin&Nit. 0-26 mg by ity of Macrocryst 09:18: mouth. [place] (MACROBID) Medical 100 mg Branch capsule HUMALOG 100 2017-03 Yes BASAL Unive rs UNIT/ML SC 0-26 1UNIT/HOUR ity of SOLN 09:18: FROM 12 AM [place] [address] TO 6:30AM, Medical 1.5 Branch UNITS/24 HOURS FROM 6:30 AM TO 12OPM AVANDAMET 2017-03 Yes 2 TABS Univer s 2-500 MG 0-26 TWICE A ity of ORAL TAB 09:18: DAY [address] insulin 2017-03 Yes inject Univers aspart 0-26 under the ity of RAPID 100 09:18: skin 3 [place] unit/mL 27 (three) Medical injection times Branch daily before meals. losartan 2017-03 Yes 50mg Take 50 mg Uni vers (COZAAR) 50 0-26 by mouth ity of mg tablet 09:18: daily. [address] Nitrofurant 2017-03 Yes 100mg Take 100 U nivers oin&Nit. 0-26 mg by ity of Macrocryst 09:18: mouth. [place] (MACROBID) 27 Medical 100 mg Branch capsule Elimite 5 % Elimite 5 % No Elimite 5 Etoile topical topical % topical Comm uni cream APPLY cream APPLY cream ty (THOROUGHLY (THOROUGHLY APPLY Hospita MASSAGE MASSAGE (THOROUGHL l INTO SKIN INTO SKIN Y MASSAGE Clinics FROM HEAD FROM HEAD INTO SKIN TO SOLES OF TO SOLES OF FROM HEAD FEET) BY FEET) BY TO SOLES TOPICAL TOPICAL OF FEET) ROUTE ONCE ROUTE ONCE BY TOPICAL LEAVE ON LEAVE ON ROUTE ONCE FOR 8-14 FOR 8-14 LEAVE ON HR, THEN HR, THEN FOR 8-14 REMOVE BY REMOVE BY HR, THEN THOROUGH THOROUGH REMOVE BY WASHING WASHING THOROUGH WASHING Epiduo Epiduo No Epiduo Etoile Forte 0.3 Forte 0.3 Forte 0.3 Communi %-2.5 % %-2.5 % %-2.5 % ty topical gel topical gel topical Hospita with pump with pump gel with l pump Clinics hydroxyzine hydroxyzine No 2 Q7H hydroxyzin Etoile HCl 25 mg HCl 25 mg e HCl 25 C ommuni tablet Take tablet Take mg tablet ty 2 tablets 2 tablets Take 2 Hos buzz every 6-8 every 6-8 tablets l hours by hours by every 6-8 Cl inics oral route. oral route. hours by oral route. losartan 50 losartan 50 No losartan Etoile mg tablet mg tablet 50 mg Comm uni tablet ty Hospita l [facility] metoprolol metoprolol No metoprolol Etoile succinate succinate succinate Communi ER 25 mg ER 25 mg ER 25 mg ty tablet,exte tablet,exte tablet,ext Hospita nded nded ended l release 24 release 24 release 24 Clinics hr hr hr omeprazole omeprazole No omeprazole Etoile 40 mg 40 mg 40 mg Communi capsule,del capsule,del capsule,de ty ayed ayed layed Hospita release release release l [facility] Pepcid 20 Pepcid 20 No 1 BID Pepcid 20 Etoile mg tablet mg tablet mg tablet Communi Take 1 Take 1 Take 1 ty tablet tablet tablet Hospita twice a day twice a day twice a l by oral by oral day by Clinics route. route. oral route. spironolact spironolact No spironolac Etoile one 100 mg one 100 mg tone 100 Communi tablet tablet mg tablet ty Hospita l [facility] Epiduo Epiduo No Epiduo Etoile Forte 0.3 Forte 0.3 Forte 0.3 Communi %-2.5 % %-2.5 % %-2.5 % ty topical gel topical gel topical Hospita with pump with pump gel with l pump Clinics famotidine famotidine No famotidine Etoile 20 mg 20 mg 20 mg Communi tablet TAKE tablet TAKE tablet ty 1 TABLET BY 1 TABLET BY TAKE 1 Hospita MOUTH TWICE MOUTH TWICE TABLET BY l A DAY A DAY MOUTH Clinics TWICE A DAY hydroxyzine hydroxyzine No hydroxyzin Etoile HCl 25 mg HCl 25 mg e HCl 25 C ommuni tablet TAKE tablet TAKE mg tablet ty 2 TABLETS 2 TABLETS TAKE 2 Hos buzz EVERY 6 8 EVERY 6 8 TABLETS l HOURS BY HOURS BY EVERY 6 8 Cl inics ORAL ROUTE. ORAL ROUTE. HOURS BY ORAL ROUTE. ivermectin ivermectin No 2 BID ivermectin Etoile 3 mg tablet 3 mg tablet 3 mg C ommuni Take 2 Take 2 tablet ty tablets tablets Take 2 Hospita twice a day twice a day tablets l by oral by oral twice a Clinic s route. route. day by oral route. losartan 50 losartan 50 No losartan Etoile mg tablet mg tablet 50 mg Comm uni tablet ty Hospita l Clinics metoprolol metoprolol No metoprolol Etoile succinate succinate succinate Communi ER 25 mg ER 25 mg ER 25 mg ty tablet,exte tablet,exte tablet,ext Hospita nded nded ended l release 24 release 24 release 24 Clinics hr hr hr omeprazole omeprazole No omeprazole Etoile 40 mg 40 mg 40 mg Communi capsule,del capsule,del capsule,de ty ayed ayed layed Hospita release release release l Clinics spironolact spironolact No spironolac Etoile one 100 mg one 100 mg tone 100 Communi tablet tablet mg tablet ty Hospita l Clinics albuterol albuterol No 2puff(s Q7H albuterol Etoile sulfate HFA sulfate HFA ) sulfate Communi 90 90 HFA 90 ty mcg/actuati mcg/actuati mcg/actuat Hospita on aerosol on aerosol ion l inhaler inhaler aerosol Clinic s Inhale 2 Inhale 2 inhaler puffs every puffs every Inhale 2 6-8 hours 6-8 hours puffs by by every 6-8 inhalation inhalation hours by route for 7 route for 7 inhalation days. days. route for 7 days. amoxicillin amoxicillin No amoxicilli Etoile [phone] n 875 Communi mg-potassiu mg-potassiu mg-potassi ty [facility] clavulanate clavulanate clavulanat l 125 mg 125 mg e 125 mg Clinics tablet TAKE tablet TAKE tablet 1 TABLET BY 1 TABLET BY TAKE 1 MOUTH EVERY MOUTH EVERY TABLET BY 12 HOURS 12 HOURS MOUTH EVERY 12 HOURS benzonatate benzonatate No 1capsul TID benzonatat Etoile 100 mg 100 mg e(s) e 100 mg Communi capsule capsule capsule ty Take 1 Take 1 Take 1 Hospita capsule 3 capsule 3 capsule 3 l times a day times a day times a Clinics by oral by oral day by route. route. oral route. Cardizem Cardizem No 1 Q1D Cardizem Swe jacky 120 mg 120 mg 120 mg Communi tablet Take tablet Take tablet ty 1 tablet 1 tablet Take 1 Hospi ta every day every day tablet l by oral by oral every day Clin ics route. route. by oral route. diltiazem diltiazem No diltiazem Etoile CD 120 mg CD 120 mg CD 120 mg Communi capsule,ext capsule,ext capsule,ex ty ended ended tended Hospita release 24 release 24 release 24 l hr hr hr Clinics losartan 50 losartan 50 No losartan Etoile mg tablet mg tablet 50 mg Comm uni tablet ty Hospita l Clinics omeprazole omeprazole No omeprazole Etoile 40 mg 40 mg 40 mg Communi capsule,del capsule,del capsule,de ty ayed ayed layed Hospita release release release l Clinics rosuvastati rosuvastati No rosuvastat Etoile n 10 mg n 10 mg in 10 mg Commu ni tablet tablet tablet ty Hospita l Clinics acetaminoph acetaminoph No 1 Q7H acetaminop Etoile en 300 en 300 hen 300 Communi mg-codeine mg-codeine mg-codeine ty 30 mg 30 mg 30 mg Hospita tablet Take tablet Take tablet l 1 tablet 1 tablet Take 1 Clini cs every 6-8 every 6-8 tablet hours by hours by every 6-8 oral route oral route hours by as needed. as needed. oral route as needed. albuterol albuterol No 2puff(s Q7H albuterol Etoile sulfate HFA sulfate HFA ) sulfate Communi 90 90 HFA 90 ty mcg/actuati mcg/actuati mcg/actuat Hospita on aerosol on aerosol ion l inhaler inhaler aerosol Clinic s Inhale 2 Inhale 2 inhaler puffs every puffs every Inhale 2 6-8 hours 6-8 hours puffs by by every 6-8 inhalation inhalation hours by route for 7 route for 7 inhalation days. days. route for 7 days. amoxicillin amoxicillin No amoxicilli Etoile [phone] n 875 Communi mg-potassiu mg-potassiu mg-potassi ty m m um [facility] clavulanate clavulanate clavulanat l 125 mg 125 mg e 125 mg Clinics tablet TAKE tablet TAKE tablet 1 TABLET BY 1 TABLET BY TAKE 1 MOUTH EVERY MOUTH EVERY TABLET BY 12 HOURS 12 HOURS MOUTH EVERY 12 HOURS benzonatate benzonatate No 1capsul TID benzonatat Etoile 100 mg 100 mg e(s) e 100 mg Communi capsule capsule capsule ty Take 1 Take 1 Take 1 Hospita capsule 3 capsule 3 capsule 3 l times a day times a day times a Clinics by oral by oral day by route. route. oral route. Cardizem Cardizem No 1 Q1D Cardizem Swe jacky 120 mg 120 mg 120 mg Communi tablet Take tablet Take tablet ty 1 tablet 1 tablet Take 1 Hospi ta every day every day tablet l by oral by oral every day Clin ics route. route. by oral route. diltiazem diltiazem No diltiazem Etoile CD 120 mg CD 120 mg CD 120 mg Communi capsule,ext capsule,ext capsule,ex ty ended ended tended Hospita release 24 release 24 release 24 l hr hr hr Clinics losartan 50 losartan 50 No losartan Etoile mg tablet mg tablet 50 mg Comm uni tablet ty [facility] omeprazole omeprazole No omeprazole Etoile 40 mg 40 mg 40 mg Communi capsule,del capsule,del capsule,de ty ayed ayed layed Hospita release release release l Clinics rosuvastati rosuvastati No rosuvastat Etoile n 10 mg n 10 mg in 10 mg Commu ni tablet tablet tablet ty [facility] Immunizations Ordered Immunization Filled Immunization Date Status Commen ts Source Name Name COVID-19, mRNA, COVID-19, mRNA, 2020-05-04 Completed [facility] LNP-S, PF, 100 LNP-S, PF, 100 00:00:00 [facility] Clinics mcg/0.5 mL dose mcg/0.5 mL dose COVID-19, mRNA, COVID-19, mRNA, 2020-05-04 Completed [facility] LNP-S, PF, 100 LNP-S, PF, 100 00:00:00 [facility] mcg/0.5 mL dose mcg/0.5 mL dose COVID-19, mRNA, COVID-19, mRNA, 2020-03-30 Completed [facility] LNP-S, PF, 100 LNP-S, PF, [facility]cg/0.5 mL dose mcg/0.5 mL dose COVID-19, mRNA, COVID-19, mRNA, 2020-03-30 Completed [facility] LNP-S, PF, 100 LNP-S, PF, 100 00:00:00 Hospit [facility] mcg/0.5 mL dose mcg/0.5 mL dose Vital Signs Vital Name Observation Time Observation Value Comments Source Systolic blood 2021-10-17 16:36:00 138 mm[Hg] [facility] Diastolic blood 2021-10-17 16:36:00 87 mm[Hg] [facility] Heart rate 2021-10-17 16:36:00 92 /min [facility] Body temperature 2021-10-17 16:36:00 36.11 Jayna [facility] Respiratory rate 2021-10-17 16:36:00 18 /min [facility] Body height 2021-10-17 16:36:[address] [facility] Body weight 2021-10-17 16:36:[address] [facility] BMI 2021-10-17 16:36:00 23.96 kg/m2 [facility] Systolic blood 2021-08-03 19:11:00 145 mm[Hg] [facility]iver [facility]ity of [facility] Diastolic blood 2021-08-03 19:11:00 87 mm[Hg] Unive rsity of pressure [facility] Heart rate 2021-08-03 19:10:00 82 /min [facility] Body height 2021-08-03 19:10:00 162.6 cm [facility] Body weight 2021-08-03 19:10:00 71.215 kg [facility] BMI 2021-08-03 19:10:00 26.95 kg/m2 [facility] Oxygen saturation in 2021-08-03 19:10:00 97 /min [facility] Arterial blood by [facility] Pulse oximetry Branch Body height 2021-06-08 13:22:[address] [facility] Body weight 2021-06-08 13:22:[address] [facility] BMI 2021-06-08 13:22:00 24.96 kg/m2 [facility] BP Diastolic 2020-09-23 00:00:00 80 mm[Hg] [facility] s Height 2020-09-23 00:00:00 65 [in_i] [facility] s BMI (Body Mass 2020-09-23 00:00:00 26.6 kg/m2 [facility] s BP Systolic 2020-09-23 00:00:00 147 mm[Hg] [facility] Body Weight 2020-09-23 00:00:00 2558.4 [oz_av] [facility] s BP Diastolic 2020-06-25 00:00:00 86 mm[Hg] [facility] s BP Systolic 2020-06-25 00:00:00 144 mm[Hg] [facility] Body Weight 2020-06-25 00:00:00 2444.8 [oz_av] [facility] s BP Diastolic 2020-06-15 00:00:00 83 mm[Hg] [facility] s BP Systolic 2020-06-15 00:00:00 149 mm[Hg] [facility] Body Weight 2020-06-15 00:00:00 2488 [oz_av] [facility] Weight 2018-09-17 16:17:00 Dorene Reagan BMI Calculated 2018-09-17 16:17:00 Marietta Aguilar Height 2018-09-17 16:17:00 162.56 cm Dorene Reagan Respitory Rate 2018-09-17 16:17:00 Marietta Aguilar Heart Rate 2018-09-17 16:17:00 [facility] Tez Systolic (mm Hg) 2018-09-17 16:17:00 Chris daysi Reagan Diastolic (mm Hg) 2018-09-17 16:17:00 Mem orial [place] Procedures Procedure Date / Time Performing Clinician Source Performed EXTERNAL PROVIDER RECORDS 2021-08-26 05:01:00 Doctor Unassigned, [facility] [place] [facility] Complete Repair of Rotator [facility] Lumpectomy of Left Breast [facility] Breast Augmentation [facility] Commu nity W/implt [facility] Cholecystectomy [facility] Rotator cuff repair [facility] Plan of Care Planned Activity Planned Date Details Comments Source Future Scheduled 2022-01-23 HEPATITIS B VACCINES [facility] Test 08:16:02 (1 of 3 - 3-dose Hospital series) [code = HEPATITIS B VACCINES (1 of 3 - 3-dose series)] Future Scheduled 2022-01-23 COVID-19 VACCINE (#1) [facility] Test 08:16:02 [code = COVID-19 Hospital VACCINE (#1)] Future Scheduled 2022-01-23 Hepatitis C screening [facility] Test 08:16:02 (procedure) [code = Hospital [id number]] Future Scheduled 2022-01-23 Screening for [employer] Test 08:16:02 malignant neoplasm of Hospit al cervix (procedure) [code = 121902836] Future Scheduled 2022-01-23 INFLUENZA VACCINE Method ist Test 08:16:02 [code = INFLUENZA Hospital VACCINE] Future Scheduled 2021-10-20 COVID-19 Vaccine (#1) [employer] Test 09:47:42 [code = COVID-19 of Medicine Vaccine (#1)] Future Scheduled 2021-10-20 TETANUS SHOT (ADULT) [place] 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 (procedure) [code = 392479858] Diagnostic Test 2021-10-17 MAMMO 3D DIAGNOSTIC Expected: [facility] Pending 00:00:00 BILATERAL [code = 10/17/2021, of Medicin e 33441] Expires: 04/19/2023 Diagnostic Test 2021-10-17 US BREAST RIGHT [code Expected: [facility] Pending 00:00:00 = 65590-3] 10/17/2021, of Medicine Expires: 04/19/2023 Future Scheduled 2021-09-21 COVID-19 Vaccination Uni versity of Test 06:17:50 (#1) [code = COVID-19 Latrice WILLARD Vaccination (#1)] [facility] Future Scheduled 2021-06-08 Screening for [facility] Col [facility]ge Test 08:38:36 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 Test 08:33:38 (procedure) [code = of Medic ine 564501027] Future Scheduled 2021-06-08 Human immunodeficiency [facility] Test 08:33:38 virus screening of Medicine (procedure) [code = 019905950] Future Scheduled 2021-06-08 FLU VACCINE > 6 MONTHS Postponed from [facility] Test 08:33:38 [code = FLU VACCINE > 10/17/2020 of Med icine 6 MONTHS] (Postpone Reason: Patient declined today) Future Scheduled 2021-06-08 ORT - XR SHOULDER Ordered: [facility] Test 08:24:45 RIGHT 3V (CHARGE ONLY) 06/08/2021 of Me davidine [code = 61291] Diagnostic Test 2020-09-23 rapid SARS CoV 2 Ag, [facility] Pending 00:00:00 QL IA, respiratory Hospital Clinics specimen [code = rapid SARS CoV 2 Ag, QL [place], respiratory specimen] Diagnostic Test 2020-09-23 rapid strep group A, [facility] Pending 00:00:00 throat [code = rapid [facility] strep group A, throat] Instructions [facility] s Encounters Start End Encounter Admission Attending Care Care Encounter Source Date/Time Date/Time Type Type Clinicians Facility Department ID 2021-08-[address] [facility] [id number] Common 07:35:00 [id number] [facility] 2021-08-17 Outpatient Feaver, [facility] [id number] Common 10:41:00 Kevin [facility] 2021-08-05 Outpatient Felenny, [facility] [id number] Common 08:44:01 Kevin [facility] 2021-04-13 Outpatient Feaver, [facility] [id number] Common 12:54:45 Kevin [id number] [facility] 2021-04-13 Outpatient Feaver, STLMLC [facility] [id number] Common 12:33:42 Kevin [id number] [facility] 2021-04-13 Outpatient Miranda, [facility] [id number] Common 12:24:39 Angeles [id number] [facility] 2021-11-14 2021-11-14 Out[address] [facility] 2021 [place] 00:00:00 00:00:[address] [place] [address] [facility] 2021-11-01 2021-11-01 Outpatient TIERA LONG [id number] [facility] 10:00:27 12:50:06 FABRIZIO Colle ge of Medicin e 2021-11-01 2021-11-01 Outpatient [facility] [id number] [facility] 09:00:33 12:44:56 Colleg e of Medicin e 2021-11-01 2021-11-01 Outpatient [facility] [id number] [facility] 08:59:34 12:42:11 Colleg e of Medicin e 2021-10-17 2021-10-17 Office TRACY LONG [id number] [facility] 10:45:05 13:29:13 Visit FABRIZIO Reed [id number] Sofía torres 0.2.7.2.[id number] [facility] 510 e 2021-10-07 2021-10-[address] [facility] 2021 [place] 04:59:00 04:59:00 0722 [facility] 2021-09-02 2021-09-[address] [facility] 2021 [place] 05:56:00 05:56:00 0617 [facility] i [facility] 2021-08-26 2021-08-26 Orders Doctor ASAEL [id number] Univers 00:00:00 00:00:00 Only Unassigned, MARK [id number] ity of [place] [facility] [id number] Gavin as [id number] [address] 2021-08-08 2021-08-08 Telephone [facility] [id number] Univers 00:00:00 00:00:00 Sharron Lerner [employer] 350.1.13.10 it y of [place] 4.2.7.2.686 Gavin as BILLY?BLEA [id number] [address] MEDICAL OFFICE [facility] 2021-08-03 2021-08-03 Outpatient [facility] [id number] Univers 14:15:00 14:48:44 SHARRON itnataliya [facility] 2021-08-03 2021-08-03 Office [facility] [id number] Univers 14:15:00 14:48:44 Visit Sharron Lerner [employer] 350.1.13.10 it y of [place] 4.2.7.2.686 Gavin as BILLY?BLEA [id number] [address] OFFICE [facility] 2021-08-03 2021-08-03 Telephone [facility] [id number] Univers 00:00:00 00:00:00 [facility] [id number] it y of [place] 4.2.7.2.686 Gavin as BILLY?BLEA [id number] Mn dical PERLA [address] [place] [address] MEDICAL OFFICE BUILDING 2021-08-03 2021-08-03 Orders Doctor ASAEL [id number] [facility] 00:00:00 00:00:00 Only Unassigned, MARK 350.1.13.10 ity of [place] [facility] 4.2.7.2.686 Gavin as [phone] [facility] jimmy 009 Branch 2021-06-08 2021-06-08 Office Shybedith, CESILIA [id number] [facility] 08:20:00 10:41:06 Visit Yung B AMBULATOR 350.1.13.21 College Y 0.2.7.2.686 of [id number] Medi bertha 600 e 2021-06-08 2021-06-08 Outpatient [facility] [id number] [facility] 08:34:22 08:34:22 Colleg e of Medicin e 2020-09-23 2020-09-23 Outpatient [facility] 2020 [place] 03:48:00 03:48:00 0708 [facility] 2020-09-23 2020-09-23 Outpatient [facility] [id number] 00:00:00 00:00:00 April [id number] 2020-09-23 2020-09-23 [facility] [place] - [place] 08 [place] 00:00:00 00:00:[address] [facility] RISK MODELER-VETERINARY MEDICINE DOCTOR-C: Hospital - ty [address] [place] [address] Clinics [address], [place] [address] , Ph. 2020-09-23 2020-09-23 Outpatient [facility] [id number] 00:00:00 00:00:00 April [id number] 2020-09-18 2020-09-[address] [facility] 2020 [place] 02:15:00 02:15:00 0703 Commun i ty Hospita l Clinics 2020-08-15 2020-08-[address] [facility] 2020 [place] 01:01:00 01:01:00 0530 Commun i ty Hospita l Clinics 2020-07-11 2020-07-[address] [facility] 2020 [place] 01:06:00 01:06:00 0425 Commun i ty Hospita l Clinics 2020-06-25 2020-06-[address] [facility] 2020 [place] 11:30:00 11:30:00 0409 Commun i ty Hospita l Clinics 2020-06-25 2020-06-25 Outpatient Contreras, [facility] [id number] 00:00:00 00:00:00 April [id number] 2020-06-25 2020-06-25 [facility] [place] 00:00:00 00:00:[address] [facility] RISK MODELER-VETERINARY MEDICINE DOCTOR-C: Hospital - ty [address] [place] [address], [place] [address] , Ph. 2020-06-15 2020-06-[address] [facility] 2020 [place] 04:49:00 04:49:00 0330 Commun i ty Hospita l Clinics 2020-06-15 2020-06-15 Outpatient Contreras, [facility] [id number] 00:00:00 00:00:00 April [id number] 2020-06-15 2020-06-15 [facility] [place] 00:00:00 00:00:00 [facility] Comm uni RISK MODELER-VETERINARY MEDICINE DOCTOR-C: Hospital - [place] [address], [place] [address] , Ph. 2020-03-02 2020-03-02 Outpatient [facility] [id number] [place] 00:00:00 00:00:00 [address] [facility] 2019-06-17 2019-06-17 Outpatient Feru_P MMG MMG [id number] [place] 03:15:00 03:15:00 0331 [facility] 2018-11-14 2018-11-16 Outside nullFlavo MNA [id number] Memoria 20:28:48 04:59:59 Medical r Neurology 01 l Records Franky Reagan 2018-11-14 2018-11-15 Outpatient MHMISCHER MHMISCHER [id number] 15:28:48 23:59:59 2018-09-23 2018-09-25 Outside nullFlavo MNA [id number] Memoria 13:42:00 04:59:59 Medical r Neurology 00 l Records Franky Reagan 2018-09-23 2018-09-24 Outpatient MHMISCHER MHMISCHER [id number] 08:42:00 23:59:59 00 2018-09-17 2018-09-18 Outpatient nullFlavo MNA [id number] Memoria 16:15:00 04:59:59 r Neurology 00 l Franky Reagan 2018-09-17 2018-09-17 Outpatient RIA AdamsMISCHER MHMISCHER [id number] 11:15:00 23:59:59 Jose Hari Guzman 2018-09-17 2018-09-17 Outpatient RIAIE RIAIE [id number] Memoria 11:15:00 11:15:00 00 carly Reagan Results This patient has no known results.
--- NOTE | 2022-02-27 21:44 | RAD REPORT ---
EXAM DESCRIPTION: RAD - Hand Right 3 View - 02/27/2022 8:51 pm CLINICAL HISTORY: PAIN COMPARISON: No comparisons FINDINGS/IMPRESSION: No acute fracture. No malalignment. No significant focal degenerative changes.
--- NOTE | 2022-02-27 21:51 | ER ---
Nurse's Notes [facility] Name: Sophie Kendall Age: 41 yrs Sex: Female : 1980 Arrival Date: 02/27/2022 Time: 19:44 Bed IW2 Private MD: Santhosh Sotelo Diagnosis: Contusion of right hand Presentation: 02/27 19:52 Chief complaint: Patient states: playing baseball at 1700 this evening - ball missed ld1 the glove and hit right thumb/hand. C/O pain to right hand. Coronavirus screen: At this time, the client does not indicate any symptoms associated with coronavirus-19. Ebola Screen: No symptoms or risks identified at this time. Initial Sepsis Screen: Does the patient meet any 2 criteria? No. Patient's initial sepsis screen is negative. Does the patient have a suspected source of infection? No. Patient's initial sepsis screen is negative. Risk Assessment: Do you want to hurt yourself or someone else? Patient reports no desire to harm self or others. Onset of symptoms was February 27, 2022. 19:52 Method Of Arrival: Ambulatory ld1 19:52 Acuity: JULIAN 4 ld1 Triage Assessment: 19:53 General: Appears in no apparent distress. comfortable, Behavior is calm, cooperative, ld1 appropriate for age. Pain: Complains of pain in right hand Pain does not radiate. Pain currently is 6 out of 10 on a pain scale. Quality of pain is described as throbbing, Pain began suddenly. EENT: No signs and/or symptoms were reported regarding the EENT system. Neuro: Level of Consciousness is awake, alert, obeys commands, Oriented to person, place, time, situation. Cardiovascular: Capillary refill < 3 seconds Patient's skin is warm and dry. Respiratory: Airway is patent Respiratory effort is even, unlabored. GI: Abdomen is flat, non-distended. : No signs and/or symptoms were reported regarding the genitourinary system. Derm: No signs and/or symptoms reported regarding the dermatologic system. Musculoskeletal: No signs and/or symptoms reported regarding the musculoskeletal system. 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 - Social history:: Smoking status: Patient denies any tobacco usage or history of. Patient/guardian denies using alcohol. - Family history:: not pertinent. - Hospitalizations: : No recent hospitalization is reported. Screenin:58 Abuse screen: Denies threats or abuse. Denies injuries from another. Nutritional ld1 screening: No deficits noted. Tuberculosis screening: No symptoms or risk factors identified. Fall Risk No fall in past 12 months (0 pts). Assessment: 21:58 Reassessment: See triage assessment. ld1 Vital Signs: 19:52 BP 173 / 95; Pulse 81; Resp 18; Pulse Ox 95% on R/A; Weight 68.04 kg; Height 5 ft. 5 ld1 in. (165.10 cm); Pain 6/10; 19:52 Body Mass Index 24.96 (68.04 kg, 165.10 cm) ld1 ED Course: 19:44 Patient arrived in ED. mr 19:44 Santhosh Sotelo MD is Private Physician. mr 19:53 Triage completed. ld1 19:53 Arm band placed on right wrist. ld1 19:54 Sacha Daniels MD is Attending Physician. rn 20:52 XRAY Hand RIGHT 3 View In Process Unspecified. EDMS 21:58 Alice Pérez, RN is Primary Nurse. ld1 21:58 Patient has correct armband on for positive identification. Call light in reach. Pulse ld1 ox on. NIBP on. Door closed. 21:58 No provider procedures requiring assistance completed. Patient did not have IV access ld1 during this emergency room visit. Administered Medications: No medications were administered Medication: 21:58 VIS not applicable for this client. ld1 Outcome: 21:51 Discharge ordered by . rn 21:58 Discharged to home ambulatory. ld1 21:58 Condition: stable 21:58 Discharge instructions given to patient, Instructed on discharge instructions, follow up and referral plans. Demonstrated understanding of instructions, follow-up care. 21:59 Patient left the ED. ld1 Signatures: Dispatcher [employer] EDTN Farzaneh Aguilar Roman, MD MD rn Beto, BEN Jenkins RN ld1
--- NOTE | 2022-02-27 21:51 | EDPHYS ---
Physician Documentation [facility] Name: Sophie Kendall Age: 41 yrs Sex: Female : 1980 Arrival Date: 02/27/2022 Time: 19:44 Bed IW2 Private MD: Santhosh Sotelo ED Physician Sacha Daniels HPI: 02/27 19:55 This 41 yrs old Female presents to ER via Ambulatory with complaints of Hand Injury. rn 19:55 The patient or guardian reports a contusion, injury, pain. The complaints affect the rn MCP of right thumb and CMC of right thumb. Onset: The symptoms/episode began/occurred today. Modifying factors: The symptoms are alleviated by holding still, the symptoms are aggravated by movement. Associated signs and symptoms: Pertinent negatives: cyanosis distally, decreased sensation distally, numbness distally. Severity of symptoms: At their worst the symptoms were moderate, in the emergency department the symptoms are unchanged. The patient has not experienced similar symptoms in the past. The patient has not recently seen a physician. Pt reports hit on non-glove hand by baseball, struck base of right thumb and now with decreased ROM and painful swelling of that area. NO other injury. . 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 - Social history:: Smoking status: Patient denies any tobacco usage or history of. Patient/guardian denies using alcohol. - Family history:: not pertinent. - Hospitalizations: : No recent hospitalization is reported. ROS: 19:55 MS/Extremity: + right hand injury and pain Skin: + mild bruising to right hand rn Exam: 19:55 Constitutional: This is a well developed, well nourished patient who is awake, alert, rn and in no acute distress. MS/ Extremity: Pulses equal, no cyanosis. Neurovascular intact. Painful ROM with medial movement of thumb and tender at thenar eminence, no focal bony tenderness, + mild swelling at base of thumb. Vital Signs: 19:52 BP 173 / 95; Pulse 81; Resp 18; Pulse Ox 95% on R/A; Weight 68.04 kg; Height 5 ft. 5 ld1 in. (165.10 cm); Pain 6/10; 19:52 Body Mass Index 24.96 (68.04 kg, 165.10 cm) ld1 MDM: 19:54 Patient medically screened. rn 21:50 Differential diagnosis: closed fracture, soft tissue injury, vessel injury. Data rn reviewed: vital signs, nurses notes, radiologic studies, plain films, and as a result, I will discharge patient. Counseling: I had a detailed discussion with the patient and/or guardian regarding: the historical points, exam findings, and any diagnostic results supporting the discharge/admit diagnosis, radiology results, the need for outpatient follow up, to return to the emergency department if symptoms worsen or persist or if there are any questions or concerns that arise at home. Special discussion: I discussed with the patient/guardian in detail that at this point there is no indication for admission to the hospital. It is understood, however, that if the symptoms persist or worsen the patient needs to return immediately for re-evaluation. 02/27 19:54 Order name: XRAY Hand RIGHT 3 View; Complete Time: 21:47 rn Administered Medications: No medications were administered Disposition Summary: 02/27/22 21:51 Discharge Ordered Location: Home rn Problem: new rn Symptoms: have improved rn Condition: Stable rn Diagnosis - Contusion of right hand rn Followup: rn - With: Private Physician - When: As needed - Reason: Recheck today's complaints, Re-evaluation by your physician Discharge Instructions: - Discharge Summary Sheet rn - Hand Contusion rn Forms: - Medication Reconciliation Form rn - Thank You Letter rn - Antibiotic furniture finisher - Prescription Opioid Use rn Signatures: Dispatcher [employer] EDSacha Hidalgo MD MD rn Dibbern, Lauren, RN RN ld1
[2022-02-27 22:50] VITALS: BP 173/95; O2SAT 95
== END 2022-02-27 21:59 | disposition home or self-care (01) ==
LOC: ER 19:40
DX: S60.221A Contusion of right hand, initial encounter (principal)
CPT/HCPCS: 99283

== ENCOUNTER 2024-01-06 17:37 | Emergency (ER) | payer BC ==
--- OUTSIDE RECORDS SUMMARY | 2024-01-06 17:40 | XMS REPORT | Clinical Summary ---
Author Name Unknown Organization [facility] [place] Address [address] [place] [address] Care Team Providers Care Dye Tank Tender Name Role Phone Rachael Luke MD Primary Care Provider Jody Woods MD Unavailable [phone] Kevin Brambila MD Unavailable [email or web address] Lore Chen MD Unavailable Darrin Cifuentes Unavailable Allergies No known active allergies Medications Medication Sig Dispensed Refills Start Date End Date Status losartan (COZAAR) 25 mg tablet Active metoprolol succinate (TOPROL XL) 25 mg 24 hr tablet TAKE 1 TABLET BY MOUTH EVERY DAY 06/24/2018 Active insulin aspart (NovoLOG) 100 units/mL injection for insulin pump by continuous subcutaneous infusion route continuous. For use in insulin pump. Active multivitamin (multivitamin) tablet Take by mouth. 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 Hypertension Type 1 diabetes mellitus Surgical History Surgery Date Site/Laterality Comments BIOPSY EXCISIONAL BREAST 03/19/2011 - 03/18/2012 Left ROTATOR CUFF REPAIR Left CHOLECYSTECTOMY AUGMENTATION MAMMAPLASTY W/P ROSTHETIC IMPLANT 03/19/2012 - 03/18/2013 Bilateral TONSILLECTOMY 03/19/2011 - 03/18/2012 DILATION AND CURETTAGE [...] Maternal Great-Grandmother Paternal Grandfather Paternal Grandmother labial, urethral Paternal Uncle Social History Tobacco Use Types Packs/Day Years Used Date Smoking Tobacco: Never Smokeless Tobacco: Never Tobacco Cessation:Counseling Given: No Sex and Gender Information Value Date Recorded Sex Assigned at Not on file Gender Identity Female 08/01/2018 3:02 PM CDT Sexual Orientation Straight 08/01/2018 3: 02 PM CDT Obstetrics History Para Term AB IAB SAB Ectopic Multiple Livin g Live Births 4 1 Date Outcome GA Total Labor Labor/2nd/3rd Weight Sex Type Anes PTL Hien A1 A5 Name Clin Para Comments Parity - 27 Menarche 12 Premenopausal, LMP 06/17/18 6 weeks- 3 months OCP 7-8 years Plan of Treatment Health Maintenance Due Date Last Done Comments COVID-19 Vaccine ( - 2023-2 5 season) 2023 Influenza Vaccine (#1) 2023 Pneumococcal Vaccine: Pediat rics (0 to 5 Years) and At-Risk Patients (6 to 64 Years) Aged Out No longer eligi ble based on patient's age to complete this topic Care Teams Dye Tank Tender Relationship Specialty Start Date End Date Rachael Luke MD [address] [place], [place] [id number] [email or web address] PCP - General Breast Surgery 07/30/18 Jody Woods MD [address] [place] [address] [email or web address] PCP - External Referring Obstetrics/Gynecology 07/30/18 Kevin Brambila MD [address] [place] [id number] [email or web address] Physician Family Practice 08/14/18 Lore Chen MD [address] [place] [address] Physician Endocrinology 08/14/18 Darrin Cifuentes [address] [facility] [address] [place], [place] [phone] Physician Cardiology 08/14/18
[2024-01-06] MEDS ORDERED: HYDROCODONE/CHLORPHEN 5 ML/OSYR ONE (18:19)
[2024-01-06] MEDS ORDERED: ONDANSETRON 4 MG/2 ML VIAL ONE (18:20)
[2024-01-06] MEDS ORDERED: KETOROLAC 30 MG/ML INJ ONE (18:20)
[2024-01-06] MEDS ORDERED: NA CHLORIDE 0.9% 1,000 ML ONE ×2 (18:20→19:22)
[2024-01-06] MEDS ORDERED: FAMOTIDINE 20 MG/2 ML VIAL IV ONE (18:20)
--- NOTE | 2024-01-06 18:31 | RAD REPORT ---
EXAM: Chest Pa And Lat (2 Views) HISTORY: COUGH COMPARISON: None. FINDINGS: LUNGS/PLEURA: The lungs are clear. No pleural effusions or pneumothorax. No pulmonary edema. MEDIASTINUM: The mediastinal silhouette is within normal limits. CARDIAC: The cardiac silhouette is within normal limits. UPPER ABDOMEN: No significant abnormality. BONES: No acute fracture. LINES/TUBES/OTHER: N/A IMPRESSION: No evidence of acute cardiopulmonary disease
[2024-01-06 18:54] LABS: Specific Gravity 1.013 (1.005-1.030)
[2024-01-06 18:55] LABS: Absolute Basophils 0.1 K/uL (0-0.5); Absolute Eosinophils 0.4 K/uL (0-0.5); Absolute Lymphocytes (CBC) 2.7 K/uL (0.7-4.9); Absolute Monocytes 1.7 K/uL (0.1-1.3); Absolute Neutrophil 12.1 K/uL (1.8-8.0); Basophils % 0.6 % (0-1.3); Eosinophils % 2.3 % (0-4.4); Hematocrit 34.4 % (36.0-45.0); Hemoglobin 11.8 g/dL (12.0-15.0); Lymphocytes % 16.1 % (15.3-44.8); MCH 31.8 pg (27.0-35.0); MCHC 34.3 g/dL (32.0-36.0); MCV 92.8 fL (80-100); MPV 8.4 fL (7.6-11.3); Platelets 360 thou/uL (152-406); Red Cell Distribution Width 12.6 % (12.1-15.2); Specific Gravity 1.013 (1.005-1.030); Sqamous Epithelial <5 /HPF (None Seen); Urine Bacteria None Seen /HPF (<20); Urine Bilirubin NEGATIVE (Negative); Urine Blood Negative (Negative); Urine Clarity Turbid (Clear); Urine Color Light-Yellow (Yellow); Urine Crystals Unidentified Few /HPF (None Seen); Urine Culture Reflex Order NOT NEEDED; Urine Glucose NEGATIVE (Negative); Urine Ketones 2+ (Negative); Urine Microscopic Reflex YN ORDER UMIC; Urine Mucus 1+ /HPF (None Seen); Urine Nitrite NEGATIVE (Negative); Urine Protein TRACE (Negative); Urine RBC <5 /HPF (None Seen); Urine Urobilinogen Normal (Normal); Urine WBC <5 /HPF (<5); Urine WBC Clump Rare /HPF (None Seen); Urine Yeast (Budding) Trace /HPF (None Seen); Urine pH 6.5 (5.0-7.0)
[2024-01-06 19:09] LABS: SARS-CoV-2 Antigen CONTROL BLUE LINE VIS/BG OK; SARS-CoV-2 Antigen Rapid Res Negative (Negative)
[2024-01-06 19:11] LABS: Anion Gap 8.6 mEq/L (5.0-15.0); Bilirubin Total 0.5 mg/dL (0.2-1.0); Potassium 3.6 mEq/L (3.5-5.1)
[2024-01-06 19:12] LABS: Albumin 3.1 g/dL (3.4-5.0); Albumin/Globulin Ratio 0.8 (1.1-1.8); Magnesium 1.5 mg/dL (1.6-2.4); Monoscreen NEG (NEG); Protein, Total 7.1 g/dL (6.4-8.2)
--- NOTE | 2024-01-06 19:48 | RAD REPORT ---
EXAM: CT CHEST, ABDOMEN AND PELVIS WITHOUT CONTRAST CLINICAL INDICATION: Female, 43 years [facility] abdominal pain;Cough Bed Name: 19 TECHNIQUE: CT chest, abdomen and pelvis was performed, with IV contrast, as per department protocol. Axial, sagittal and coronal reconstructions were obtained. One or more of the following dose reduction techniques were used: Automated exposure control, adjustment of the mA and/or kV according to the patient size, and/or iterative reconstruction. Unless otherwise specified, incidental findings do not require dedicated imaging follow-up. [id number]. COMPARISON: No prior exam. FINDINGS: Chest: LOWER NECK/CHEST WALL: Visualized thyroid gland and soft tissues are normal. Bilateral breast prosthe ses. LUNGS AND AIRWAYS: Airways are clear. No evidence of airspace or interstitial process. No nodules. PLEURA: No pleural effusion. No pneumothorax. Hemidiaphragms are normally positioned. MEDIASTINUM AND LYMPH NODES: No mediastinal mass or fluid collection. Normal size mediastinal, hilar, and axillary lymph nodes. THORACIC AORTA: Normal caliber and configuration. PULMONARY ARTERIES: Normal caliber. HEART: Unremarkable. Abdomen/Pelvis LIVER: Normal in size and contour. No focal lesion. GALLBLADDER/BILE DUCTS: Corticectomy PANCREAS: No mass, ductal dilation, or hawk-pancreatic fluid. SPLEEN: Normal size. No focal lesion. ADRENALS: Normal; no mass. KIDNEYS AND URETERS: Normal size and contour. No hydronephrosis. GASTROINTESTINAL TRACT: Stomach is non-dilated. Small bowel has normal course and caliber. No colonic wall thickening or pericolonic inflammatory changes. Normal appendix. PERITONEUM: Trace pelvic free fluid. LYMPH NODES: No lymphadenopathy. ABDOMINAL AORTA AND OTHER VESSELS: Normal caliber aorta and IVC. URINARY BLADDER: Normal contour. REPRODUCTIVE ORGANS: No pathologic process. IUD. MUSCULOSKELETAL: No acute or suspicious osseous abnormality. ADDITIONAL FINDINGS: None IMPRESSION: No acute or significant abnormalities in the chest, abdomen, or pelvis.
[2024-01-06] MEDS ORDERED: CEFTRIAXONE 1000 MG/VIAL ONE (21:06)
[2024-01-06] MEDS ORDERED: MAGNESIUM SULFATE 1 gm IVPB 1 GM/100 ML BAG IV ONE (21:06)
--- NOTE | 2024-01-06 21:06 | EDPHYS ---
Physician Documentation [facility] Name: Sophie Kendall Age: 43 yrs Sex: Female : 1980 Arrival Date: 01/06/2024 Time: 17:37 Bed 19 Private MD: ED Physician Valente Tay HPI: 01/05 18:15 This 43 yrs old Female presents to ER via Ambulatory with complaints of Cough, cp Abdominal Pain, No voice. 18:15 The patient or guardian reports cough, that is constant, sore throat with loss of voice.cp 18:15 Onset: The symptoms/episode began/occurred 5 day(s) ago. cp 18:15 Associated signs and symptoms: Pertinent positives: fever, nausea, abdominal pain, cp Pertinent negatives: diarrhea, active vomiting. 18:15 Severity of symptoms: in the emergency department the symptoms are unchanged, despite cp home interventions. Historical: - Allergies: 17:41 NKA; ll1 - PMHx: 17:41 Diabetes - IDDM; Hypertension; pylo; SVT; UTI; ll1 - PSHx: 17:41 section; Cholecystectomy; Shoulder - Left; Tonsillectomy; ll1 - Immunization history:: Adult Immunizations up to date. - Infectious Disease History:: Denies. - Social history:: Smoking status: Patient denies any tobacco usage or history of. ROS: 18:20 Constitutional: Positive for fever, cp 18:20 Eyes: Negative for injury, pain, redness, and discharge, cp 18:20 ENT: Positive for sore throat, Negative for drainage from ear(s), ear pain, difficulty swallowing, difficulty handling secretions, 18:20 Cardiovascular: Negative for chest pain, edema, palpitations, 18:20 Respiratory: Positive for cough, Negative for wheezing, 18:20 Abdomen/GI: Positive for abdominal pain, nausea, Negative for diarrhea, constipation, active vomiting, 18:20 Neuro: Negative for altered mental status, 18:20 All other systems are negative, Exam: 18:25 Constitutional: The patient appears in no acute distress, alert, awake, non-toxic, well cp developed, well nourished, uncomfortable, 18:25 Head/Face: Normocephalic, atraumatic. cp 18:25 Eyes: Periorbital structures: appear normal, Pupils: equal, round, and reactive to light and accomodation, Extraocular movements: intact throughout, Conjunctiva: normal, no exudate, no injection, Sclera: no appreciated abnormality, Lids and lashes: appear normal, bilaterally, 18:25 ENT: External ear(s): are unremarkable, Ear canal(s): are normal, clear, TM's: dullness, bilaterally, Nose: is normal, Mouth: Lips: moist, Oral mucosa: moist, Posterior pharynx: Airway: no evidence of obstruction, patent, Tonsils: with exudate, no enlargement, no exudate, Uvula: midline, erythema, that is moderate, exudate, is not appreciated, 18:25 Neck: ROM/movement: limited range of motion, is not appreciated, Meningeal signs: are not present, 18:25 Chest/axilla: Inspection: normal, 18:25 Cardiovascular: Rate: tachycardic, Rhythm: regular, Edema: is not appreciated, JVD: is not appreciated, 18:25 Respiratory: the patient does not display signs of respiratory distress, Respirations: normal, no use of accessory muscles, no retractions, labored breathing, is not present, Breath sounds: are clear throughout, no decreased breath sounds, no stridor, no wheezing, 18:25 Abdomen/GI: Inspection: abdomen appears normal, Bowel sounds: active, all quadrants, Palpation: soft, in all quadrants, mild abdominal tenderness, in the right lower quadrant, rebound tenderness, is not appreciated, voluntary guarding, is not appreciated, 18:25 Back: CVA tenderness, is absent, 18:25 Skin: no rash present. 18:25 Neuro: Orientation: to person, place \T\ time. Mentation: is normal, Motor: moves all fours, strength is normal, Sensation: is normal, 19:17 ECG was reviewed by the Attending Physician. cp Vital Signs: 17:49 BP 143 / 85; Pulse 117; Resp 17; Temp 97.6; Pulse Ox 100% ; Weight 63.5 kg; Height 5 ll1 ft. 4 in. ; Pain 8/10; 19:05 BP 152 / 80; Pulse 98; Resp 18; Pulse Ox 95% ; Pain 0/10; br2 20:00 BP 140 / 85; Pulse 98; Resp 18 S; Pulse Ox 93% on R/A; br2 21:00 BP 118 / 78; Pulse 95; Resp 18 S; Pulse Ox 95% on R/A; br2 17:49 Body Mass Index 24.03 (63.50 kg, 162.56 cm) ll1 17:49 Pain Scale: Adult ll1 19:05 Pain Scale: Adult br2 MDM: 17:51 Medical Screening Exam initiated cp 21:05 Data reviewed: vital signs, nurses notes, lab test result(s), EKG, radiologic studies, cp CT scan, and as a result, I will discharge patient. 21:05 Differential Diagnosis: Bronchitis Influenza Pharyngitis Otitis Media Viral Syndrome cp Pneumonia Other sepsis. I considered the following discharge prescriptions or medication management in the emergency department Medications were administered in the Emergency Department. See MAR. Independent interpretation of the following test(s) in the Emergency Department EKG: See my EKG interpretation above. 21:05 Counseling: I had a detailed discussion with the patient and/or guardian regarding the cp historical points, exam findings, and any diagnostic results supporting the discharge/admit diagnosis, lab results, radiology results, to return to the emergency department if symptoms worsen or persist or if there are any questions or concerns that arise at home. 21:05 Response to treatment: the patient's symptoms have mildly improved after treatment, and cp as a result, I will discharge patient. 01/05 18:12 Order name: CBC with Diff; Complete Time: 19:01 cp 01/05 19:01 Interpretation: Normal except: WBC 17.00; RBC 3.70; HGB 11.8; HCT 34.4; NEUT A 12.1; cp MNA 1.7. 01/05 18:12 Order name: CMP; Complete Time: 19:57 cp 01/05 19:58 Interpretation: Normal except: GLUC 159; BUN 5; AST 12; ALB 3.1; GLOB 4.0; A/G 0.8. cp 01/05 18:12 Order name: Lipase; Complete Time: 19:57 cp 01/05 19:58 Interpretation: Reviewed. cp 01/05 18:12 Order name: Test, Urine; Complete Time: 19:01 cp 01/05 18:12 Order name: Urinalysis w/ reflexes; Complete Time: 19:01 cp 01/05 20:05 Interpretation: Normal except: UCLA Turbid; UKET 2+; UPROT TRACE; BYST Trace. cp 01/05 18:12 Order name: Magnesium; Complete Time: 19:57 cp 01/05 19:58 Interpretation: Abnormal: MG 1.5. cp 01/05 18:12 Order name: [place] Screen Profile; Complete Time: 19:57 cp 01/05 19:58 Interpretation: Reviewed. cp 01/05 18:12 Order name: Strep; Complete Time: 19:57 cp 01/05 19:59 Interpretation: Reviewed. cp 01/05 18:12 Order name: SARS RAPID; Complete Time: 19:57 cp 01/05 18:12 Order name: Influenza Screen (a \T\ B); Complete Time: 19:57 cp 01/05 19:04 Order name: Lactate w/ 2H reflex if indic.; Complete Time: 20:04 cp 01/05 20:04 Interpretation: Reviewed. cp 01/05 19:04 Order name: Blood Culture Adult (2) cp 01/05 19:11 Order name: Throat Culture EDMS 01/05 18:12 Order name: XRAY Chest Pa And Lat (2 Views); Complete Time: 19:01 cp 01/05 19:02 Interpretation: Report reviewed. cp 01/05 19:03 Order name: CT Chest, Abdomen, Pelvis - W/Contrast; Complete Time: 19:57 cp 01/05 20:06 Interpretation: Report reviewed. cp 01/05 18:12 Order name: IV Saline Lock; Complete Time: 18:45 cp 01/05 18:12 Order name: Labs collected and sent; Complete Time: 18:45 cp 01/05 18:12 Order name: EKG - Nurse/Tech; Complete Time: 19:13 cp 01/05 20:07 Order name: PO challenge cp EC:17 Rate is 98 beats/min. Rhythm is regular. AL interval is normal. QRS interval is normal. cp QT interval is normal. T waves are Inverted in leads aVR, V2. Interpreted by me. Reviewed by me. Administered Medications: 18:45 Drug: Famotidine IVP 20 mg IVP once; dilute with 10 mL 0.9% NaCl; give over 2 minutes tm6 Route: IVP; Site: right antecubital; 18:45 Drug: TORadol - Ketorolac IVP 15 mg IVP once Route: IVP; Site: right antecubital; tm6 18:45 Drug: Ondansetron IVP 4 mg IVP once; over 2 minutes Route: IVP; Site: right antecubital;tm6 19:15 Follow up: Response: No adverse reaction br2 19:15 Follow up: Response: No adverse reaction br2 18:45 Drug: NS 0.9% IV 1000 ml IV at 1 bolus Per protocol; to be given as a bolus over 60 tm6 minutes Route: IV; Rate: 1 bolus; Site: right antecubital; 19:45 Follow up: Response: No adverse reaction; IV Status: Completed infusion; IV Intake: br2 1000ml 18:46 Drug: Tussionex Pennkinetic ER PO Suspension 5 ml PO once Route: PO; tm6 19:24 Drug: NS 0.9% IV 1000 ml IV at 1000 ml once; to be given as a bolus over 60 minutes br2 Route: IV; Rate: 1000 ml; Site: right antecubital; 20:30 Follow up: IV Status: Completed infusion; IV Intake: 1000ml br2 21:25 Drug: Rocephin IV 1 grams IV at calculated rate once; Given slow IV push per pharmacy br2 instructions Route: IV; Rate: calculated rate; Site: right antecubital; 21:35 Follow up: Response: No adverse reaction; IV Intake: 10ml br2 21:41 Drug: Magnesium Sulfate IVPB 1 grams IVPB once over 1 hrs Route: IVPB; Infused Over: 1 br2 hrs; Site: right antecubital; 21:52 Follow up: Response: No adverse reaction; IV Status: Completed infusion; IV Intake: br2 100ml Disposition Summary: 01/06/24 21:05 Discharge Ordered Notes: Location: Home cp Problem: new cp Symptoms: have improved cp Condition: Stable cp Diagnosis - Cough cp - Acute pharyngitis, unspecified cp - Abdominal pain, unspecified cp Followup: cp - With: Private Physician - When: 2 - 3 days - Reason: Recheck today's complaints Discharge Instructions: - Discharge Summary Sheet cp - Abdominal Pain, Adult cp - Pharyngitis cp - Sore Throat cp - Cough, Adult cp Forms: - Medication Reconciliation Form cp - Antibiotic Education cp - Prescription Opioid Use cp - Patient Portal Instructions cp - Leadership Thank You Letter cp Prescriptions: - Augmentin 875-125 mg Oral Tablet - take 1 tablet ORAL route every 12 hours for 10 days; 20 tablet; Refills: 0, cp Product Selection Permitted - Ibuprofen 800 mg Oral Tablet - take 1 tablet ORAL route every 8 hours As needed take with food; 30 tablet; cp Refills: 0, Product Selection Permitted - promethazine 25 mg Oral Tablet - take 1 tablet ORAL route every 6 hours As needed; 20 tablet; Refills: 0, cp Product Selection Permitted Signatures: Dispatcher [employer] EDMS Valente Stovall PA PA cp Geovanna Ibanez RN RN ll1 Yohana Morrison RN RN tm6 Sirena Urrutia RN RN br2 Corrections: (The following items were deleted from the chart) 18:13 18:13 CBC+H.LAB.BRZ ordered. EDMS EDMS 18:13 18:13 COMPREHENSIVE METABOLIC PANEL+C.LAB.BRZ ordered. EDMS EDMS 18:13 18:13 LIPASE+C.LAB.BRZ ordered. EDMS EDMS 18:13 18:13 Test, Urine+UC.LAB.BRZ ordered. EDMS EDMS 18:13 18:13 Urinalysis+U.LAB.BRZ ordered. EDMS EDMS 18:13 18:13 MAGNESIUM+C.LAB.BRZ ordered. EDMS EDMS 18:13 18:13 MONO SCREEN PROFILE+I.LAB.BRZ ordered. EDMS EDMS 18:13 18:13 Group A Streptococcus Rapid Sc+BA.LAB.BRZ ordered. EDMS EDMS 18:13 18:13 SARS-COV-2 Antigen Rapid+I.LAB.BRZ ordered. EDMS EDMS 18:13 18:13 Influenza Screen (A \T\ B)+BA.LAB.BRZ ordered. EDMS EDMS 18:13 18:13 Chest Pa And Lat (2 Views)+RAD.RAD.BRZ ordered. EDMS EDMS 01/06 18:36 01/05 18:15 The patient or guardian reports cough, that is constant, sore throat with cp loss of voice, cp 01/06 18:39 01/05 18:15 Associated signs and symptoms: Pertinent positives: fever, nausea, cp abdominal pain, cp
--- NOTE | 2024-01-06 21:06 | ER ---
Nurse's Notes [facility] Name: Sophie Kendall Age: 43 yrs Sex: Female : 1980 Arrival Date: 01/06/2024 Time: 17:37 Bed 19 Private MD: Diagnosis: Cough;Acute pharyngitis, unspecified;Abdominal pain, unspecified Presentation: 01/05 17:49 Chief complaint: Patient states: Cough, fatigue, fever, weakness, Lost voice, R sided ll1 abdominal pain since Sunday. Coronavirus screen: Client denies travel out of the [place] in the last 14 days. cough unrelated to allergies, fatigue, fever, headache. Ebola Screen: Patient denies travel to an Ebola-affected area in the 21 days before illness onset. Initial Sepsis Screen: Does the patient meet any 2 criteria? No. Patient's initial sepsis screen is negative. Does the patient have a suspected source of infection? No. Patient's initial sepsis screen is negative. Risk Assessment: Do you want to hurt yourself or someone else? Patient reports no desire to harm self or others. Onset of symptoms was January 01, 2024. 17:49 Method Of Arrival: Ambulatory ll1 17:49 Acuity: JULIAN 3 ll1 Triage Assessment: 17:49 General: Appears uncomfortable, Behavior is calm, cooperative, appropriate for age. ll1 General: Reports fever for feeling ill for fatigue for. Pain: Complains of pain in abdomen Pain currently is 8 out of 10 on a pain scale. Quality of pain is described as aching, sharp, Pain began 2-3 days ago. Is intermittent, Aggravated by coughing. EENT: Reports lost voice. Neuro: Reports weakness. Respiratory: Reports cough that is. GI: Reports lower abdominal pain, nausea, vomiting. Historical: - Allergies: 17:41 NKA; ll1 - PMHx: 17:41 Diabetes - IDDM; Hypertension; pylo; SVT; UTI; ll1 - PSHx: 17:41 section; Cholecystectomy; Shoulder - Left; Tonsillectomy; ll1 - Immunization history:: Adult Immunizations up to date. - Infectious Disease History:: Denies. - Social history:: Smoking status: Patient denies any tobacco usage or history of. Screenin:55 [facility] ED Fall Risk Assessment (Adult) History of falling in the last 3 months, tm6 including since admission No falls in past 3 months (0 pts) Confusion or Disorientation No (0 pts) Intoxicated or Sedated No (0 pts) Impaired Gait No (0 pts) Mobility Assist Device Used No (0 pt) Altered Elimination No (0 pt) Score/Fall Risk Level 0 - 2 = Low Risk Oriented to surroundings, Maintained a safe environment, Educated pt \T\ family on fall prevention, incl call for assistance when getting out of bed. Abuse screen: Denies threats or abuse. Denies injuries from another. Nutritional screening: No deficits noted. Tuberculosis screening: No symptoms or risk factors identified. Assessment: 17:55 General: Appears in no apparent distress. uncomfortable, Behavior is calm, cooperative. tm6 Pain: Complains of pain in right lower quadrant Aggravated by coughing. Neuro: Level of Consciousness is awake, alert, obeys commands, Oriented to person, place, time, situation. Cardiovascular: Patient's skin is warm and dry. Respiratory: Reports cough that is non-productive, persistent since Sunday. Airway is patent Respiratory effort is even, unlabored, Respiratory pattern is regular, symmetrical. GI: Bowel sounds present X 4 quads. Abd is soft Reports lower abdominal pain, intolerance of fluids, intolerance of food, nausea, vomiting. : No signs and/or symptoms were reported regarding the genitourinary system. EENT: No signs and/or symptoms were reported regarding the EENT system. Derm: No signs and/or symptoms reported regarding the dermatologic system. Musculoskeletal: Reports body aches since Sunday. 17:57 EENT: Reports losing voice. tm6 19:00 Reassessment: Patient and/or family updated on plan of care and expected duration. Pain br2 level reassessed. Patient is alert, oriented x 3, equal unlabored respirations, skin warm/dry/pink. Patient states feeling better. Patient states symptoms have improved. General: Appears in no apparent distress. comfortable, Behavior is calm, cooperative. Pain: Denies pain. GI: Reports nausea. 20:00 Reassessment: No changes from previously documented assessment. Patient and/or family br2 updated on plan of care and expected duration. Pain level reassessed. Patient is alert, oriented x 3, equal unlabored respirations, skin warm/dry/pink. General: Appears in no apparent distress. comfortable, Behavior is calm, cooperative. Pain: Denies pain. 21:00 Reassessment: No changes from previously documented assessment. Patient and/or family br2 updated on plan of care and expected duration. Pain level reassessed. Patient is alert, oriented x 3, equal unlabored respirations, skin warm/dry/pink. General: Appears in no apparent distress. comfortable. Vital Signs: 17:49 BP 143 / 85; Pulse 117; Resp 17; Temp 97.6; Pulse Ox 100% ; Weight 63.5 kg; Height 5 ll1 ft. 4 in. ; Pain 8/10; 19:05 BP 152 / 80; Pulse 98; Resp 18; Pulse Ox 95% ; Pain 0/10; br2 20:00 BP 140 / 85; Pulse 98; Resp 18 S; Pulse Ox 93% on R/A; br2 21:00 BP 118 / 78; Pulse 95; Resp 18 S; Pulse Ox 95% on R/A; br2 17:49 Body Mass Index 24.03 (63.50 kg, 162.56 cm) ll1 17:49 Pain Scale: Adult ll1 19:05 Pain Scale: Adult br2 ED Course: 17:39 Patient arrived in ED. mr 17:41 Valente Stovall PA is PHCP. cp 17:41 Valente Tay MD is Attending Physician. cp 17:41 Arm band placed on. ll1 17:49 Yohana Morrison, BEN is Primary Nurse. tm6 17:50 Triage completed. ll1 17:57 Patient has correct armband on for positive identification. Bed in low position. Call tm6 light in reach. Side rails up X 1. Provided Education on: use of call alfred. Client placed on continuous cardiac and pulse oximetry monitoring. NIBP monitoring applied. Pulse ox on. NIBP on. Door closed. Noise minimized. 18:24 XRAY Chest Pa And Lat (2 Views) In Process Unspecified. EDMS 18:44 Inserted saline lock: 20 gauge in right antecubital area, using aseptic technique. tm6 Blood collected. Flushed with 10 mL NS. 18:45 Influenza Screen (a \T\ B) Sent. tm6 18:45 SARS RAPID Sent. tm6 18:45 Strep Sent. tm6 18:45 [place] Screen Profile Sent. tm6 18:45 CBC with Diff Sent. tm6 18:45 CMP Sent. tm6 18:45 Lipase Sent. tm6 18:45 Test, Urine Sent. tm6 18:45 Urinalysis w/ reflexes Sent. tm6 19:00 Report received from BEN FOWLER. br2 19:14 EKG done, by ED staff. vk 19:19 Primary Nurse role handed off by Yohana Morrison RN br2 19:19 Sirena Urrutia RN is Primary Nurse. br2 19:36 CT Chest, Abdomen, Pelvis - W/Contrast In Process Unspecified. EDMS 21:52 Blood Culture Adult (2) Sent. br2 21:54 IV discontinued, intact, bleeding controlled, No redness/swelling at site. Pressure br2 dressing applied. 21:54 No provider procedures requiring assistance completed. br2 Administered Medications: 18:45 Drug: Famotidine IVP 20 mg IVP once; dilute with 10 mL 0.9% NaCl; give over 2 minutes tm6 Route: IVP; Site: right antecubital; 18:45 Drug: TORadol - Ketorolac IVP 15 mg IVP once Route: IVP; Site: right antecubital; tm6 18:45 Drug: Ondansetron IVP 4 mg IVP once; over 2 minutes Route: IVP; Site: right antecubital;tm6 19:15 Follow up: Response: No adverse reaction br2 19:15 Follow up: Response: No adverse reaction br2 18:45 Drug: NS 0.9% IV 1000 ml IV at 1 bolus Per protocol; to be given as a bolus over 60 tm6 minutes Route: IV; Rate: 1 bolus; Site: right antecubital; 19:45 Follow up: Response: No adverse reaction; IV Status: Completed infusion; IV Intake: br2 1000ml 18:46 Drug: Tussionex Pennkinetic ER PO Suspension 5 ml PO once Route: PO; tm6 19:24 Drug: NS 0.9% IV 1000 ml IV at 1000 ml once; to be given as a bolus over 60 minutes br2 Route: IV; Rate: 1000 ml; Site: right antecubital; 20:30 Follow up: IV Status: Completed infusion; IV Intake: 1000ml br2 21:25 Drug: Rocephin IV 1 grams IV at calculated rate once; Given slow IV push per pharmacy br2 instructions Route: IV; Rate: calculated rate; Site: right antecubital; 21:35 Follow up: Response: No adverse reaction; IV Intake: 10ml br2 21:41 Drug: Magnesium Sulfate IVPB 1 grams IVPB once over 1 hrs Route: IVPB; Infused Over: 1 br2 hrs; Site: right antecubital; 21:52 Follow up: Response: No adverse reaction; IV Status: Completed infusion; IV Intake: br2 100ml Medication: 17:55 VIS not applicable for this client. tm6 Intake: 19:45 IV: 1000ml; Total: 1000ml. br2 20:30 IV: 1000ml; Total: 2000ml. br2 21:35 IV: 10ml; Total: 2010ml. br2 21:52 IV: 100ml; Total: 2110ml. br2 Outcome: 21:05 Discharge ordered by MD. cp 21:54 Discharged to home ambulatory, br2 21:54 Condition: stable 21:54 Discharge instructions given to patient, Instructed on discharge instructions, follow up and referral plans. Demonstrated understanding of instructions, follow-up care, medications, Prescriptions given X 3, 21:55 Patient left the ED. br2 Signatures: Dispatcher [employer] EDMS Farzaneh Aguilar, Reg Reg mr Valente Stovall PA PA cp Lewis, Lynsay, RN RN ll1 Yohana Morrison RN RN tm6 Lore Mratins Belinda, RN RN br2
[2024-01-07 01:45] VITALS: TEMP 97.6
[2024-01-07 01:49] VITALS: BP 118/78; O2SAT 95
--- NOTE | 2024-01-08 12:55 | EKG ---
Test Date: 2024-01-06 Test Time: 19:10:56 [employer] Spotter: FERNANDA MEASUREMENT RESULTS: Intervals: Rate: 98 NC: 144 QRSD: 78 QT: 350 QTc: 446 White: P: 68 NC: 144 QRS: 10 T: 54 INTERPRETIVE STATEMENTS: Normal sinus rhythm Possible Left atrial enlargement Low voltage QRS Borderline ECG No previous ECG available for comparison Electronically Signed On 01-08-24 12:50:58 CDT by Christiano Noble
== END 2024-01-06 21:55 | disposition home or self-care (01) ==
LOC: ER 17:37
DX: R05.9 Cough, unspecified (principal); J02.9 Acute pharyngitis, unspecified; R10.31 Right lower quadrant pain; Z11.52 Encounter for screening for COVID-19; I10 Essential (primary) hypertension
CPT/HCPCS: 96361; 93005; 87040 ×2; 87070; 85025; 81001; 36415; 83735; 86308; 81025; 87081; 83605; 83690; 80053; 87804 ×2; 71260; 74177; 71046; 96375; 96374; 99285; 87811; Q9967; J3475; J2405; J7030 ×2; J0696